=== PATIENT | male | born 1960 | race American Indian/Alaskan Native ===

== ENCOUNTER 2020-12-14 07:42 | Day surgery (SDC) | payer MEDICARE ==
[2020-12-14] MEDS ORDERED: ceFAZolin/STERILE WATER 2 GM/20 ML SYRINGE IV NR (08:00)
[2020-12-14] MEDS ORDERED: LIDOCAINE MPF (2%) 20 MG/1 ML VIAL 5 ML ONE (08:30)
[2020-12-14] MEDS ORDERED: ONDANSETRON 4 MG/2 ML INJ ONE (08:30)
[2020-12-14] MEDS ORDERED: NEOSTIGMINE 10MG/10 ML INJ MDV ONE (08:30)
[2020-12-14] MEDS ORDERED: ROCURONIUM 50 MG/5 ML INJ IV ONE (08:30)
[2020-12-14] MEDS ORDERED: GLYCOPYRROLATE 0.4 MG/2 ML INJ ONE (08:30)
[2020-12-14] MEDS ORDERED: SODIUM CHLORIDE 0.9% 1000 ML 1,000 ML ONE (08:33)
[2020-12-14 08:38] LABS: Hematocrit 27.2 % (35.5-45.6); Hemoglobin 8.8 gm/dl (11.8-15.2); Mean Corpuscular HGB Conc 32 % (32-34); Mean Corpuscular Volume 89 fl (84-94); Platelet Count 382 K/mm3 (140-440); Red Blood Count 3.07 M/mm3 (3.65-5.03)
[2020-12-14 09:36] LABS: Red Cell Distribution Width 20.3 % (13.2-15.2)
--- NOTE | 2020-12-14 09:47 | Anesthesia Day of Surgery ---
Anesthesia Day of Surgery - Day of Surgery Patient Examined: Yes Patient H&P Reviewed: Yes Patient is NPO: Yes Beta Blockers: Yes
--- NOTE | 2020-12-14 09:49 | Anesthesia Consultation ---
Anesthesia Consult and Med Hx Date of service: 12/14/20 - Airway Anesthetic Teeth Evaluation: Chipped (Missing) ROM Head & Neck: Adequate Mental/Hyoid Distance: Adequate Mallampati Class: Class III Intubation Access Assessment: Probably Good - Pre-Operative Health Status ASA Pre-Surgery Classification: ASA3 Proposed Anesthetic Plan: General - Pulmonary Hx Smoking: Yes (STOPPED 1997) Hx Asthma: Yes (DAILY / PRN INHALER USE) Hx Respiratory Symptoms: No SOB: No COPD: No Hx Sleep Apnea: Yes (DX SLEEP APNEA , NO CPAP USE.) - Cardiovascular System Hx Hypertension: Yes (X 9 YRS) Hx Heart Attack/AMI: No Hx Percutaneous Transluminal Coronary Angioplasty (PTCA): No Hx Peripheral Vascular Disease: Yes (Stable AAA; saw proj engineer 08/2020) - Central Nervous System Hx Neuromuscular Disorder: Yes (Uses walker and limited activity) Hx Seizures: No CVA: No Hx Psychiatric Problems: No - Gastrointestinal Hx Ulcer: No (Hx pancreatitis) Hx Gastroesophageal Reflux Disease: Yes (asymptomatic today) - Endocrine Hx Renal Disease: Yes (Last HD yesterday) Hx End Stage Renal Disease: Yes Hx Liver Disease: No Hx Insulin Dependent Diabetes: No Hx Thyroid Disease: No - Hematic Hx Anemia: Yes Hx Sickle Cell Disease: No - Other Systems Hx Cancer: No Hx Obesity: No - Additional Comments Anesthesia Medical History Comments: Was here 01/2018
[2020-12-14] MEDS ORDERED: SODIUM CHLORIDE 0.9% 1000 ML 1,000 ML IV SCH (10:00)
[2020-12-14] MEDS ORDERED: ONDANSETRON 4 MG/2 ML INJ IV PRN (10:00)
[2020-12-14] MEDS ORDERED: HYDROmorphone 1 MG/1 ML INJ IV PRN ×2 (10:00)
[2020-12-14] MEDS ORDERED: BUPIVACAINE/PF (0.25%) 2.5 MG/ML 30 ML VIAL INFILTRATI ONE ×2 (10:23→11:21)
[2020-12-14] MEDS ORDERED: LIDOCAINE 1%/EPINEPHRINE 1:100,000 VIAL (20 ML) INFILTRATI ONE (10:23)
[2020-12-14] MEDS ORDERED: propofoL 200 MG/20 ML VIAL IV ONE (10:43)
[2020-12-14] MEDS ORDERED: fentaNYL 100 MCG/2 ML INJ ONE (10:43)
[2020-12-14] MEDS ORDERED: LIDOCAINE (1%) 10 MG/1 ML VIAL 20 ML MDV INFILTRATI ONE (11:21)
[2020-12-14] MEDS ORDERED: SODIUM CHLORIDE 0.9% IRR 1,500 ML BOTTLE IR ONE (11:22)
[2020-12-14] MEDS ORDERED: SUGAMMADEX SODIUM 200 MG/2 ML VIAL IV ONE (11:31)
--- NOTE | 2020-12-14 11:51 | Short Stay Summary ---
Short Stay Documentation Date of service: 12/14/20 - History Principal diagnosis: Nonfunctioning PD catheter, now on HD H&P: obtained from office - Allergies and Medications Current Medications: Allergies No Known Allergies Allergy (Verified 03/05/18 12:44) Home Medications Medication Instructions Recorded Confirmed Last Taken Type Albuterol Sulfate [Ventolin Hfa] 2 puff PO PRN PRN 01/15/18 12/12/20 01/13/18 09:00 History Lactulose 20 gm PO BID 01/15/18 12/12/20 01/14/18 18:00 History Pantoprazole 40 mg PO DAILY 01/15/18 12/12/20 01/14/18 18:00 History carvediloL [Carvedilol] 25 mg PO BID 01/15/18 12/12/20 12/14/20 05:00 History cloNIDine [Clonidine] 0.3 mg TRANSDERMA 1XW 01/15/18 12/12/20 01/09/18 09:00 History sevelamer HCL [Renagel] 3,200 mg PO TID 01/15/18 12/14/20 12/13/20 History Oxycodone HCl/Acetaminophen 1 each PO Q6HR PRN #15 tablet 01/16/18 12/12/20 Unknown Rx [Percocet 7.5/325 mg] B-Complex with Vitamin C [Vitamin 1 each PO DAILY 12/12/20 12/14/20 12/13/20 History B-Complex with Vit C] Budesonide/Formoterol Fumarate 2 puff IH BID 12/12/20 12/14/20 12/13/20 History [Symbicort 160-4.5 Mcg Inhaler] Docusate Sodium [Colace] 100 mg PO BID 12/12/20 12/12/20 Unknown History Dupilumab [Dupixent Pen] 200 mg SQ Q2W 12/12/20 12/12/20 Unknown History Ergocalciferol [Vitamin D2] 1 cap PO QWEEK 12/12/20 12/14/20 12/13/20 History Ferric Citrate (Nf) [Auryxia] 210 mg PO TID 12/12/20 12/14/20 12/13/20 History NIFEdipine [Procardia Xl] 60 mg PO DAILY 12/12/20 12/12/20 12/14/20 05:00 History Ondansetron HCl [Zofran] 4 mg PO PRN PRN 12/12/20 12/12/20 Unknown History Dupixent Pen 0 1000units SUB-Q 2XW 12/14/20 12/14/20 12/13/20 History Active Medications Cefazolin Sodium (Cefazolin/Sterile Water 2 Gm/20 Ml Syringe) 2 gm IV PREOP NR Stop: 12/14/20 20:00 Hydromorphone HCl (Hydromorphone 1 Mg/1 Ml Inj) 0.25 mg IV Q10MIN PRN PRN Reason: Pain, Moderate (4-6) Stop: 12/14/20 17:00 Hydromorphone HCl (Hydromorphone 1 Mg/1 Ml Inj) 0.5 mg IV Q10MIN PRN PRN Reason: Pain , Severe (7-10) Stop: 12/14/20 17:00 Sodium Chloride (Nacl 0.9% 1000 Ml) 1,000 mls @ 42 mls/hr IV DIRECT ALEISHA Last Admin: 12/14/20 08:40 Dose: 42 mls/hr Documented by: Ondansetron HCl (Ondansetron 4 Mg/2 Ml Inj) 4 mg IV ONCE PRN PRN Reason: Nausea And Vomiting Stop: 12/14/20 17:00 - Brief post op/procedure progress note Date of procedure: 12/14/20 Pre-op diagnosis: Nonfunctioning PD catheter, now on HD Post-op diagnosis: same Procedure: Removal of Peritoneal dialysis catheter Anesthesia: GETA, local Findings: Entire PD catheter removed - 2 pieces Surgeon: KEIRA LAY Estimated blood loss: minimal Pathology: list (PD catheter - 2 pieces, for ID only) Specimen disposition: to lab Condition: stable - Hospital course Hospital course: Pt observed in PACU and discharged to home in stable condition when criteria met - Disposition Condition at discharge: Good Short Stay Discharge Plan Activity: no restrictions Diet: regular Wound: open to air, per your surgeon's advice Additional Instructions: SEE PRINTED DISCHARGE INSTRUCTIONS Follow up with: AMALIA HERNANDEZ II, MD [Primary Care Provider] - 7 Days KEIRA LAY DO [Staff Physician] - 14 Days Prescriptions: traMADoL [Ultram 50 MG tab] 50 mg PO Q6HR PRN #10 tablet PRN Reason: Pain , Severe (7-10)
--- NOTE | 2020-12-14 14:51 | Post Anesthesia Evaluation ---
- Post Anesthesia Evaluation Patient Participated: Yes Airway Patent: Yes Stable Respiratory Function: Yes Nausea/Vomiting: No Temp > 96.8F: Yes Pain Manageable: Yes Adequeate Hydration: Yes Anesthesia Complications: No Block Receding Appropriately: Not Applicable Patient on Ventilator: No
--- NOTE | 2020-12-14 16:03 | Operative Report ---
Operative Report Operative Report: Date of procedure: 12/14/20 Pre-op diagnosis: Nonfunctioning PD catheter, now on HD Post-op diagnosis: same Procedure: Removal of Peritoneal dialysis catheter Anesthesia: GETA, local Findings: Entire PD catheter removed - 2 pieces Surgeon: KEIRA LAY DO Estimated blood loss: minimal Pathology: list (PD catheter - 2 pieces, for ID only) Specimen disposition: to lab Condition: stable Hospital course: Pt observed in PACU and discharged to home in stable condition when criteria met HPI and indication: Patient is a 60-year-old male with a history of end-stage renal disease now on hemodialysis. Previously the patient was on peritoneal dialysis but switched over to hemodialysis. He has not been using his peritoneal dialysis catheter for some time. He was referred to the surgery clinic by Dr. Miles bernal soft tile setter to be evaluated for PD catheter removal. I discussed the procedure with him in detail. All risks, benefits, alternatives were discussed and questions answered. Consent was obtained for peritoneal dialysis catheter removal. All preoperative labs were reviewed and patient had dialysis yesterday. Procedure in detail: Patient was identified in the preoperative area, taken back to the operating room and placed on the operating room table in supine position. After anesthesia was induced the abdomen and peritoneal dialysis catheter were prepped and draped in the usual sterile fashion and a timeout performed. The subcutaneous cuff was easily palpable under the skin at the site of a previous surgical scar. Local anesthetic was infiltrated into the skin at the intended incision site. An incision was made over the palpable cuff using a 10 blade. Dissection was carried down through the skin and subcutaneous tissue using electrocautery until the catheter was encountered. The catheter was dissected from the capsule and the subcutaneous cuff was identified. This was dissected free from the surrounding tissue using electrocautery. We then continued our dissection in order to localize the preperitoneal cuff. This was easily located and dissected from the surrounding tissue using electrocautery. The entire catheter was then free. The catheter was cut just distal to both cuffs. Both pieces were removed without resistance. The fascia was closed with an interrupted 0 Vicryl stitch. The subcutaneous tissue was irrigated and hemostasis very carefully ensured. The incision was closed in layered fashion. The deep dermal layer was closed with interrupted 3-0 Vicryl stitches and the skin was approximated using 4-0 Monocryl subcuticular running stitch and skin glue. The 2 pieces of the peritoneal dialysis catheter were passed off the table as a specimen for identification only. A 4 x 4 gauze dressing was applied to the PD catheter exit site and secured with Tegaderm. At the end of the case, all sponge, instrument, sharp counts were correct x2. The patient was awoken from anesthesia, extubated, taken to PACU in stable condition.
[2020-12-14 17:21] VITALS: BP 132/81
== END 2020-12-14 13:10 | disposition home or self-care (01) ==
LOC: OR 07:42
PROVIDERS: ATTEND Surgery
DX: Z49.02 Encounter for fitting and adjustment of peritoneal dialysis catheter (principal); I12.0 Hypertensive chronic kidney disease with stage 5 chronic kidney disease or end stage renal disease; N18.6 End stage renal disease; K21.9 Gastro-esophageal reflux disease without esophagitis; I73.9 Peripheral vascular disease, unspecified; E78.00 Pure hypercholesterolemia, unspecified; J45.909 Unspecified asthma, uncomplicated; Z87.891 Personal history of nicotine dependence; Z90.49 Acquired absence of other specified parts of digestive tract; Z98.890 Other specified postprocedural states; Z79.899 Other long term (current) drug therapy
CPT/HCPCS: 36415; 49422; 80048; 85027; 88302; J0690; J2405; J2704; J2710; J3010; J7030; U0003

== ENCOUNTER 2021-01-10 00:06 | Inpatient (IN) | payer MEDICARE ==
[2021-01-10] MEDS ORDERED: IPRATROPIUM 0.02% NEBU 2.5 ML IH ONE (00:12)
[2021-01-10] MEDS ORDERED: ALBUTEROL 2.5 MG/3 ML NEBU IH ONE (00:12)
--- NOTE | 2021-01-10 00:24 | Emergency Department Report ---
ED Shortness of Breath HPI - General Chief Complaint: Dyspnea/Respdistress Stated Complaint: MARV Time Seen by Provider: 01/10/21 00:06 Source: patient, EMS Mode of arrival: Stretcher Limitations: Altered Mental Status - History of Present Illness Initial Comments: Patient is a 60-year-old male that presents emergency room with complaints of shortness of breath. Patient states his symptoms started 30 minutes prior to arrival. Patient states symptoms worsen. Patient states his symptoms are better with rest and worse with exertion. Patient states short of breath or back to barely get around his house. Patient states he was unable to open the door for EMS. Patient denies chest pain. Patient brought in by EMS. Report received from EMS. EMS states that they found the patient to have a 43% oxygen saturation on room air. Patient was given Decadron 10 mg and albuterol. Patient has a history of CHF, end-stage renal disease and hypertension and asthma. Patient said increased to 76% with the albuterol. EMS tried BiPAP but the patient saturation drops they placed him back on a nonrebreather satting 91% on a nonrebreather. Patient denies recent travel. Patient denies recent international travel. Patient denies exposure to the novel coronavirus. Patient denies sick contacts. Patient denies fever and chills. Patient denies cough. Patient denies diarrhea. Patient denies coming in contact with anybody with symptoms of the novel coronavirus. MD Complaint: shortness of breath -: Sudden Pain Scale: 10 Consistency: constant Improves With: rest Worsens With: exertion Known History Of: asthma, congestive heart failure, other (esrd) Treatments Prior to Arrival: oxygen, bronchodilator, other (Decadron 10 mg) - Related Data Home Oxygen Therapy: No Home Medications Medication Instructions Recorded Confirmed Last Taken Albuterol Sulfate [Ventolin Hfa] 2 puff PO PRN PRN 01/15/18 12/12/20 01/13/18 09:00 Lactulose 20 gm PO BID 01/15/18 12/12/20 01/14/18 18:00 Pantoprazole 40 mg PO DAILY 01/15/18 12/12/20 01/14/18 18:00 carvediloL [Carvedilol] 25 mg PO BID 01/15/18 12/12/20 12/14/20 05:00 cloNIDine [Clonidine] 0.3 mg TRANSDERMA 1XW 01/15/18 12/12/20 01/09/18 09:00 sevelamer HCL [Renagel] 3,200 mg PO TID 01/15/18 12/14/20 12/13/20 B-Complex with Vitamin C [Vitamin 1 each PO DAILY 12/12/20 12/14/20 12/13/20 B-Complex with Vit C] Budesonide/Formoterol Fumarate 2 puff IH BID 12/12/20 12/14/20 12/13/20 [Symbicort 160-4.5 Mcg Inhaler] Docusate Sodium [Colace CAP] 100 mg PO BID 12/12/20 12/12/20 Unknown Dupilumab [Dupixent Pen] 200 mg SQ Q2W 12/12/20 12/12/20 Unknown Ergocalciferol [Vitamin D2] 1 cap PO QWEEK 12/12/20 12/14/20 12/13/20 Ferric Citrate (Nf) [Auryxia] 210 mg PO TID 12/12/20 12/14/20 12/13/20 NIFEdipine [Procardia Xl] 60 mg PO DAILY 12/12/20 12/12/20 12/14/20 05:00 Ondansetron HCl [Zofran] 4 mg PO PRN PRN 12/12/20 12/12/20 Unknown Dupixent Pen 0 1000units SUB-Q 2XW 12/14/20 12/14/20 12/13/20 Previous Rx's Medication Instructions Recorded Last Taken Type Oxycodone HCl/Acetaminophen 1 each PO Q6HR PRN #15 tablet 01/16/18 Unknown Rx [Percocet 7.5/325 mg] traMADoL [Ultram 50 MG tab] 50 mg PO Q6HR PRN #10 tablet 12/14/20 Unknown Rx Allergies Allergy/AdvReac Type Severity Reaction Status Date / Time No Known Allergies Allergy Verified 03/05/18 12:44 ED Review of Systems ROS: Stated complaint: MARV Other details as noted in HPI ED Past Medical Hx - Past Medical History Hx Hypertension: Yes (X 9 YRS) Hx Heart Attack/AMI: No Hx Liver Disease: No Hx Renal Disease: Yes (Last HD yesterday) Hx Sickle Cell Disease: No Hx Headaches / Migraines: Yes Hx Seizures: No Hx Asthma: Yes (DAILY / PRN INHALER USE) Hx COPD: No - Surgical History Hx Cholecystectomy: Yes Additional Surgical History: right AV fistula, PD - Social History Smoking Status: Former Smoker - Medications Home Medications: Home Medications Medication Instructions Recorded Confirmed Last Taken Type Albuterol Sulfate [Ventolin Hfa] 2 puff PO PRN PRN 01/15/18 12/12/20 01/13/18 09:00 History Lactulose 20 gm PO BID 01/15/18 12/12/20 01/14/18 18:00 History Pantoprazole 40 mg PO DAILY 01/15/18 12/12/20 01/14/18 18:00 History carvediloL [Carvedilol] 25 mg PO BID 01/15/18 12/12/20 12/14/20 05:00 History cloNIDine [Clonidine] 0.3 mg TRANSDERMA 1XW 01/15/18 12/12/20 01/09/18 09:00 History sevelamer HCL [Renagel] 3,200 mg PO TID 01/15/18 12/14/20 12/13/20 History Oxycodone HCl/Acetaminophen 1 each PO Q6HR PRN #15 tablet 01/16/18 12/12/20 Unknown Rx [Percocet 7.5/325 mg] B-Complex with Vitamin C [Vitamin 1 each PO DAILY 12/12/20 12/14/20 12/13/20 History B-Complex with Vit C] Budesonide/Formoterol Fumarate 2 puff IH BID 12/12/20 12/14/20 12/13/20 History [Symbicort 160-4.5 Mcg Inhaler] Docusate Sodium [Colace CAP] 100 mg PO BID 12/12/20 12/12/20 Unknown History Dupilumab [Dupixent Pen] 200 mg SQ Q2W 12/12/20 12/12/20 Unknown History Ergocalciferol [Vitamin D2] 1 cap PO QWEEK 12/12/20 12/14/20 12/13/20 History Ferric Citrate (Nf) [Auryxia] 210 mg PO TID 12/12/20 12/14/20 12/13/20 History NIFEdipine [Procardia Xl] 60 mg PO DAILY 12/12/20 12/12/20 12/14/20 05:00 History Ondansetron HCl [Zofran] 4 mg PO PRN PRN 12/12/20 12/12/20 Unknown History Dupixent Pen 0 1000units SUB-Q 2XW 12/14/20 12/14/20 12/13/20 History traMADoL [Ultram 50 MG tab] 50 mg PO Q6HR PRN #10 tablet 12/14/20 Unknown Rx ED Physical Exam - General Limitations: No Limitations General appearance: alert, in distress - Head Head exam: Present: atraumatic, normocephalic - Eye Eye exam: Present: normal appearance, PERRL Pupils: Present: normal accommodation - ENT ENT exam: Present: mucous membranes moist - Neck Neck exam: Present: normal inspection - Respiratory Respiratory exam: Present: respiratory distress, wheezes, rales - Cardiovascular Cardiovascular Exam: Present: regular rate, normal rhythm. Absent: systolic murmur, diastolic murmur, rubs, gallop - GI/Abdominal GI/Abdominal exam: Present: soft, normal bowel sounds. Absent: distended, tenderness, guarding - Rectal Rectal exam: Present: deferred - Extremities Exam Extremities exam: Present: normal inspection - Back Exam Back exam: Present: normal inspection - Neurological Exam Neurological exam: Present: alert, oriented X3 - Psychiatric Psychiatric exam: Present: normal affect, normal mood - Skin Skin exam: Present: warm, dry, intact, normal color. Absent: rash ED Course Vital Signs 01/10/21 01/10/21 01/10/21 00:26 00:30 00:32 Temperature 97.7 F Pulse Rate 85 84 Respiratory 29 H 25 H Rate Blood Pressure Blood Pressure 186/103 [Left] O2 Sat by Pulse 94 88 93 Oximetry 01/10/21 01/10/21 01/10/21 00:36 00:45 01:07 Temperature Pulse Rate 81 76 Respiratory 25 H 26 H Rate Blood Pressure 186/103 Blood Pressure [Left] O2 Sat by Pulse 93 100 100 Oximetry 01/10/21 01/10/21 01/10/21 01:15 01:31 01:45 Temperature Pulse Rate 74 68 71 Respiratory 24 25 H 19 Rate Blood Pressure 180/109 186/103 186/103 Blood Pressure [Left] O2 Sat by Pulse 99 98 98 Oximetry 01/10/21 02:01 Temperature Pulse Rate 64 Respiratory 18 Rate Blood Pressure 175/97 Blood Pressure [Left] O2 Sat by Pulse 99 Oximetry - Reevaluation(s) Reevaluation #1: Patient will be placed on BiPAP. Patient continues to have increased work of breathing and hypoxia. 01/10/21 00:24 Reevaluation #2: Patient's chest x-ray done. There is a bilateral haziness consistent with flash pulmonary edema. Patient will be placed on a nitro drip. Patient is on BiPAP and his work to breathe and oxygen saturation have improved. His lung sounds have improved. 01/10/21 00:48 Reevaluation #3: Patient resting comfortably. Patient's vital signs are improving. Patient's oxygen is improving. 01/10/21 01:30 Reevaluation #4: Patient's blood pressure has improved. Patient's heart rate is improved. Pa ja's hypoxia is improving. Patient's oxygen support will be decreased. Patient is on BiPAP. Patient's lung sounds are improving. Patient's work to breathe has resolved. Patient is currently on a nitro drip. 01/10/21 02:10 Reevaluation #5: I discussed all results with patient. I discussed plan of care with patient. Patient agrees with plan of care and admission. Patient to be admitted to the hospitalist service. 01/10/21 02:31 - Consultations Consultation #1: Hospitalist consulted for admission. Hospitalist to admit patient. 01/10/21 02:32 ED Medical Decision Making - Lab Data Result diagrams: 01/10/21 00:26 01/10/21 00:26 - EKG Data -: EKG Interpreted by Me EKG shows normal: sinus rhythm, axis, intervals, QRS complexes, ST-T waves Rate: normal - Radiology Data Radiology results: report reviewed, image reviewed interpreted by me: Chest x-ray: No pneumonia, no pneumothorax, no foreign body, no osseous findings, flash pulmonary edema noted. CHEST 1 VIEW INDICATION / CLINICAL INFORMATION: Dyspnea. FINDINGS: SUPPORT DEVICES: None. HEART / MEDIASTINUM: Cardiomegaly LUNGS / PLEURA: Severe bilateral airspace opacity. Small bilateral pleural effusions. No pneumothorax. - Medical Decision Making Patient is a 60-year-old male who presents emergency room with complaints of shortness of breath. Patient had an insidious onset of shortness of breath approximately 30 minutes prior to arrival. Patient brought in by EMS. Report received from EMS. EMS states the patient was hypertensive and hypoxic. Patient initial oxygen saturation 42%. Patient was then placed on albuterol neb and increased to 76% oxygen saturation. BiPAP was attempted by EMS but u nsuccessful. Patient was then placed on a nonrebreather and he was 91-92%. EMS gave the patient Decadron and albuterol. My evaluation, the patient was found to have increased work of breathing, respiratory distress, hypoxia, wheezing throughout lung alvarez and rales. Patient was given a DuoNeb and placed on BiPAP. Patient oxygen saturation and work to breathe improved. Patient did have a chest x-ray appears to have generalized pulmonary edema consistent with flash pulmonary edema. Patient was then placed on a nitro drip. Patient's clinical course dramatically improved after the nitro drip and the patient's oxygen saturation and blood pressure improved. Patient's work to breathe impro nancy with the nitro drip and the BiPAP. Patient had labs done which were consistent with end-stage renal disease, anemia and elevated troponin. Patient troponin most likely elevated due to clinical condition and end-stage renal disease. Patient EKG was done and it shows a sinus rhythm with normal ST segments. No STEMI noted. I personally reviewed the labs and the chest x-ray and EKG. Patient given aspirin in the ER. Patient admitted to the hospitalist service for further evaluation and treatment into the ICU. Critical care time documented due to the multiple reassessments, prolonged time at the bedside, interpretation of diagnostics and labs. - Differential Diagnosis Pulmonary edema, status asthmaticus, hypoxia, shortness of breath, CHF Critical Care Time: Yes Critical care time in (mins) excluding proc time.: 45 Critical care attestation.: If time is entered above; I have spent that time in minutes in the direct care of this critically ill patient, excluding procedure time. Critical Care Time: 45 minutes ED Disposition Clinical Impression: Flash pulmonary edema, Shortness of breath, End stage renal disease, Elevated troponin Respiratory failure Qualifiers: Chronicity: acute Respiratory failure complication: hypoxia Qualified Code(s): J96.01 - Acute respiratory failure with hypoxia Status asthmaticus Qualifiers: Asthma severity: severe Asthma persistence: unspecified Qualified Code(s): J45. 902 - Unspecified asthma with status asthmaticus Disposition: 09 ADMITTED INPATIENT Is pt being admited?: Yes Does the pt Need Aspirin: No Condition: Critical Instructions: Pulmonary Edema (ED) Time of Disposition: 02:41
[2021-01-10 00:42] LABS: Basophils # (Auto) 0.1 K/mm3 (0.0-0.1); Basophils % (Auto) 0.6 % (0.0-1.8); Eosinophils # (Auto) 0.3 K/mm3 (0.0-0.4); Eosinophils % (Auto) 2.3 % (0.0-4.3); Hematocrit 29.3 % (35.5-45.6); Hemoglobin 9.6 gm/dl (11.8-15.2); Lymphocytes # (Auto) 1.9 K/mm3 (1.2-5.4); Mean Corpuscular HGB Conc 33 % (32-34); Mean Corpuscular Volume 90 fl (84-94); Monocytes # (Auto) 0.6 K/mm3 (0.0-0.8); Monocytes % (Auto) 4.5 % (0.0-7.3); Platelet Count 274 K/mm3 (140-440); Red Blood Count 3.26 M/mm3 (3.65-5.03)
--- NOTE | 2021-01-10 00:47 | XRay Report ---
CHEST 1 VIEW INDICATION / CLINICAL INFORMATION: Dyspnea. FINDINGS: SUPPORT DEVICES: None. HEART / MEDIASTINUM: Cardiomegaly LUNGS / PLEURA: Severe bilateral airspace opacity. Small bilateral pleural effusions. No pneumothorax . Signer Name: Jack Wallace MD Signed: 01/10/2021 12:43 AM Workstation Name: [id number]
[2021-01-10 00:48] LABS: Red Cell Distribution Width 24.8 % (13.2-15.2)
[2021-01-10 00:53] LABS: INR 1.29 (0.87-1.13)
[2021-01-10 00:54] LABS: Partial Thromboplastin Time 31.7 Sec. (24.2-36.6)
[2021-01-10 01:06] LABS: Albumin 4.7 g/dL (3.9-5); Calcium 9.4 mg/dL (8.4-10.2)
[2021-01-10] MEDS ORDERED: NITROGLYCERIN DRIP 50 MG/250 ML BOTTLE IV SCH (02:00)
[2021-01-10 02:05] LABS: Chol/HDL Ratio 3.01 %
[2021-01-10] MEDS ORDERED: ASPIRIN 325 MG TAB PO ONE (02:41)
[2021-01-10] MEDS ORDERED: oxyCODONE /ACETAMINOPHEN 5-325MG TAB PO PRN (03:43)
[2021-01-10] MEDS ORDERED: HYDROmorphone 1 MG/1 ML INJ IV PRN (03:43)
[2021-01-10] MEDS ORDERED: MORPHINE 2 MG/1 ML INJ IV PRN (03:43)
[2021-01-10] MEDS ORDERED: ONDANSETRON 4 MG/2 ML INJ IV PRN (03:43)
[2021-01-10] MEDS ORDERED: ACETAMINOPHEN 325 MG TAB PO PRN (03:43)
[2021-01-10] MEDS ORDERED: traMADol 50 MG TAB PO PRN (03:48)
--- NOTE | 2021-01-10 03:56 | History and Physical Report ---
History of Present Illness Date of examination: 01/10/21 Date of admission: 01/10/21 Chief complaint: Dyspnea Respiratory distress History of present illness: 60-year-old male with history of end-stage dialyzed on hemodialysis last hemodialysis yesterday was brought to the emergency room because of shortness of breath. Patient states his symptoms started 30 minutes prior to arrival. Patient states symptoms worsen. Patient states his symptoms are better with re st and worse with exertion. Patient states short of breath or back to barely get around his house. Patient states he was unable to open the door for EMS. Patient denies chest pain. EMS states that they found the patient to have a 43% oxygen saturation on room air. Patient was given Decadron 10 mg and albuterol. Patient has a history of CHF, end-stage renal disease and hypertension and asthma. Patient said increased to 76% with the albuterol. EMS tried BiPAP but the patient saturation drops they placed him back on a nonrebreather satting 91% on a nonrebreather. In the emergency room patient is found to have acute flash pulmonary edema. Subsequently patient was put on BiPAP and nitro drip and we are going to admit the patient to the ICU. Critical care is informed Med rec is done Past History Past Medical History: ESRD, hypertension, renal failure, other (Asthma) Medications and Allergies Allergies Allergy/AdvReac Type Severity Reaction Status Date / Time No Known Allergies Allergy Verified 03/05/18 12:44 Home Medications Medication Instructions Recorded Confirmed Last Taken Type Albuterol Sulfate [Ventolin Hfa] 2 puff PO PRN PRN 01/15/18 12/12/20 01/13/18 09:00 History Lactulose 20 gm PO BID 01/15/18 12/12/20 01/14/18 18:00 History Pantoprazole 40 mg PO DAILY 01/15/18 12/12/20 01/14/18 18:00 History carvediloL [Carvedilol] 25 mg PO BID 01/15/18 12/12/20 12/14/20 05:00 History cloNIDine [Clonidine] 0.3 mg TRANSDERMA 1XW 01/15/18 12/12/20 01/09/18 09:00 History sevelamer HCL [Renagel] 3,200 mg PO TID 01/15/18 12/14/20 12/13/20 History Oxycodone HCl/Acetaminophen 1 each PO Q6HR PRN #15 tablet 01/16/18 12/12/20 Unknown Rx [Percocet 7.5/325 mg] B-Complex with Vitamin C [Vitamin 1 each PO DAILY 12/12/20 12/14/20 12/13/20 History B-Complex with Vit C] Budesonide/Formoterol Fumarate 2 puff IH BID 12/12/20 12/14/20 12/13/20 History [Symbicort 160-4.5 Mcg Inhaler] Docusate Sodium [Colace CAP] 100 mg PO BID 12/12/20 12/12/20 Unknown History Dupilumab [Dupixent Pen] 200 mg SQ Q2W 12/12/20 12/12/20 Unknown History Ergocalciferol [Vitamin D2] 1 cap PO QWEEK 12/12/20 12/14/20 12/13/20 History Ferric Citrate (Nf) [Auryxia] 210 mg PO TID 12/12/20 12/14/20 12/13/20 History NIFEdipine [Procardia Xl] 60 mg PO DAILY 12/12/20 12/12/20 12/14/20 05:00 History Ondansetron HCl [Zofran] 4 mg PO PRN PRN 12/12/20 12/12/20 Unknown History Dupixent Pen 0 1000units SUB-Q 2XW 12/14/20 12/14/20 12/13/20 History traMADoL [Ultram 50 MG tab] 50 mg PO Q6HR PRN #10 tablet 12/14/20 Unknown Rx Active Meds: Active Medications Acetaminophen (Acetaminophen 325 Mg Tab) 650 mg PO Q4H PRN PRN Reason: Pain MILD(1-3)/Fever >100.5/[place] Albuterol (Albuterol 2.5 Mg/3 Ml Nebu) 2.5 mg IH Q4HRT PRN PRN Reason: Shortness Of Breath Albuterol/Ipratropium (Ipratropium/Albuterol Sulfate 3 Ml Ampul.Neb) 1 ampul IH Q6HRT [facility] Aspirin (Aspirin 81 Mg Tab Chew) 81 mg PO ONCE ONE Stop: 01/10/21 03:52 Atorvastatin Calcium (Atorvastatin 40 Mg Tab) 40 mg PO QHS [facility] Carvedilol (Carvedilol 25 Mg Tab) 25 mg PO BID [facility] Clonidine HCl (Clonidine Tts 0.3 Mg/24 Hr Patch) 0.3 mg TD 1XW [facility] Docusate Sodium (Docusate Sodium 100 Mg Cap) 100 mg PO BID [facility] Ergocalciferol (Ergocalciferol (Vit D2) 50,000 Unit Cap) unit PO QWEEK [facility] Famotidine (Famotidine 20 Mg Tab) 20 mg PO BID [facility] Furosemide (Furosemide 40 Mg/4 Ml Inj) 40 mg IV QDAY [facility] Heparin Sodium (Porcine) (Heparin 5,000 Unit/1 Ml Vial) 5,000 unit SUB-Q Q8HR [facility] Hydromorphone HCl (Hydromorphone 1 Mg/1 Ml Inj) 0.5 mg IV Q3H PRN PRN Reason: Pain , Severe (7-10) Nitroglycerin/Dextrose (Tridil Drip 50mg/250ml) 50 mg in 250 mls @ 3 mls/hr IV TITR [facility]; Protocol Last Admin: 01/10/21 02:01 Dose: 10 mcg/min, 3 mls/hr Documented by: Miscellaneous Medication (Budesonide/Formoterol Fumarate [Symbicort 160-4.5 Mcg Inhaler]) 2 puff IH BID [facility] Miscellaneous Medication (Dupilumab [Dupixent Pen]) 200 mg SQ Q2W [facility] Miscellaneous Medication (Sevelamer Hcl [Renagel]) 3,200 mg PO TID [facility] Morphine Sulfate (Morphine 2 Mg/1 Ml Inj) 2 mg IV Q5MIN PRN PRN Reason: Chest Pain unrelieved by NTG Nifedipine (Nifedipine Xl 60 Mg Tab) 60 mg PO DAILY [facility] Ondansetron HCl (Ondansetron 4 Mg/2 Ml Inj) 4 mg IV Q8H PRN PRN Reason: Nausea And Vomiting Oxycodone/Acetaminophen (Oxycodone /Acetaminophen 5-325mg Tab) 1 tab PO Q6H PRN PRN Reason: Pain, Moderate (4-6) Sodium Chloride (Sodium Chloride 0.9% 10 Ml Flush Syringe) 10 ml IV BID [facility] Sodium Chloride (Sodium Chloride 0.9% 10 Ml Flush Syringe) 10 ml IV PRN PRN PRN Reason: LINE FLUSH Tramadol HCl (Tramadol 50 Mg Tab) 50 mg PO Q6HR PRN PRN Reason: Pain , Severe (7-10) Vitamin B Complex/Vitamin C (B Complex W/Vitamin C Tab) 1 each PO DAILY [facility] Review of Systems All systems: negative Cardiovascular: edema, shortness of breath, dyspnea on exertion Respiratory: shortness of breath, dyspnea on exertion, wheezing Exam - Constitutional Vitals: Temp Pulse Resp BP Pulse Ox 97.7 F 63 17 175/97 100 01/10/21 00:32 01/10/21 02:15 01/10/21 02:15 01/10/21 02:15 01/10/21 02:15 General appearance: Present: no acute distress, well-nourished - EENT Eyes: Present: PERRL ENT: hearing intact, clear oral mucosa - Neck Neck: Present: supple, normal ROM - Respiratory Respiratory effort: labored Respiratory: bilateral: diminished, wheezing - Cardiovascular Heart Sounds: Present: S1 & S2. Absent: rub, click - Extremities Extremities: pulses symmetrical Extremity abnormal: edema Peripheral Pulses: within normal limits - Abdominal General gastrointestinal: Present: soft, non-tender, non-distended, normal bowel sounds Male genitourinary: Present: normal - Integumentary Integumentary: Present: clear, warm, dry - Musculoskeletal Musculoskeletal: gait normal, strength equal bilaterally - Psychiatric Psychiatric: appropriate mood/affect, intact judgment & insight - Neurologic Neurologic: CNII-XII intact, moves all extremities HEART Score - HEART Score Troponin: Troponin T 0.625 ng/mL (0.00-0.029) H* 01/10/21 00:26 Results - Labs CBC & Chem 7: 01/10/21 00:26 01/10/21 00:26 Labs: Laboratory Last Values WBC 13.8 K/mm3 (4.5-11.0) H 01/10/21 00:26 RBC 3.26 M/mm3 (3.65-5.03) L 01/10/21 00:26 Hgb 9.6 gm/dl (11.8-15.2) L 01/10/21 00:26 Hct 29.3 % (35.5-45.6) L 01/10/21 00:26 MCV 90 fl (84-94) 01/10/21 00:26 MCH 30 pg (28-32) 01/10/21 00:26 MCHC 33 % (32-34) 01/10/21 00:26 RDW 24.8 % (13.2-15.2) H 01/10/21 00:26 Plt Count 274 K/mm3 (140-440) 01/10/21 00:26 Lymph % (Auto) 14.0 % (13.4-35.0) 01/10/21 00:26 [place] % (Auto) 4.5 % (0.0-7.3) 01/10/21 00:26 Eos % (Auto) 2.3 % (0.0-4.3) 01/10/21 00:26 Baso % (Auto) 0.6 % (0.0-1.8) 01/10/21 00:26 Lymph # (Auto) 1.9 K/mm3 (1.2-5.4) 01/10/21 00:26 [place] # (Auto) 0.6 K/mm3 (0.0-0.8) 01/10/21 00:26 Eos # (Auto) 0.3 K/mm3 (0.0-0.4) 01/10/21 00:26 Baso # (Auto) 0.1 K/mm3 (0.0-0.1) 01/10/21 00:26 Seg Neutrophils % 78.6 % (40.0-70.0) H 01/10/21 00:26 Seg Neutrophils # 10.9 K/mm3 (1.8-7.7) H 01/10/21 00:26 PT 16.6 Sec. (12.2-14.9) H 01/10/21 00:26 INR 1.29 (0.87-1.13) H 01/10/21 00:26 APTT 31.7 Sec. (24.2-36.6) 01/10/21 00:26 Sodium 136 mmol/L (137-145) L 01/10/21 00:26 Potassium 4.3 mmol/L (3.6-5.0) 01/10/21 00:26 Chloride 92.0 mmol/L (98-107) L 01/10/21 00:26 Carbon Dioxide 20 mmol/L (22-30) L 01/10/21 00:26 Anion Gap 28 mmol/L 01/10/21 00:26 BUN 47 mg/dL (9-20) H 01/10/21 00:26 Creatinine 8.0 mg/dL (0.8-1.3) H 01/10/21 00:26 Estimated GFR 8 ml/min 01/10/21 00:26 BUN/Creatinine Ratio 6 % 01/10/21 00:26 Glucose 140 mg/dL (75-100) H 01/10/21 00:26 Calcium 9.4 mg/dL (8.4-10.2) 01/10/21 00:26 Total Bilirubin 0.20 mg/dL (0.1-1.2) 01/10/21 00:26 AST 24 units/L (5-40) 01/10/21 00:26 ALT 9 units/L (7-56) 01/10/21 00:26 Alkaline Phosphatase 123 units/L (35-129) 01/10/21 00:26 Troponin T 0.625 ng/mL (0.00-0.029) H* 01/10/21 00:26 Total Protein 8.6 g/dL (6.3-8.2) H 01/10/21 00:26 Albumin 4.7 g/dL (3.9-5) 01/10/21 00:26 Albumin/Globulin Ratio 1.2 % 01/10/21 00:26 Triglycerides 116 mg/dL (2-149) 01/10/21 00:26 Cholesterol 157 mg/dL (50-199) 01/10/21 00:26 LDL Cholesterol Direct 77 mg/dL (50-130) 01/10/21 00:26 HDL Cholesterol 52 mg/dL (40-59) 01/10/21 00:26 Cholesterol/HDL Ratio 3.01 % 01/10/21 00:26 - Imaging and Cardiology Chest x-ray: report reviewed Assessment and Plan VTE prophylaxis?: Chemical Plan of care discussed with patient/family: Yes - Patient Problems (1) Acute respiratory failure Current Visit: Yes Status: Acute Plan to address problem: Admit the patient to the critical care unit. Patient is on BiPAP. We also continue nitro drip as per protocol. Lasix 40 mg IV x1 dose. DuoNeb by nebulizer every 4 hours. Albuterol via nebulizer every 4 hours as needed. Will consult critical care evaluation (2) Flash pulmonary edema Current Visit: Yes Status: Acute Plan to address problem: Patient is on BiPAP. We also continue nitro drip as per protocol. Lasix 40 mg IV x1 dose. DuoNeb by nebulizer every 4 hours. Echocardiogram. Cardiology and nephrology evaluation (3) Elevated troponin Current Visit: Yes Status: Acute Plan to address problem: Aspirin 81 mg p.o. daily Lipitor 40 mg p.o. daily. Echocardiogram. Serial cardiac enzymes. Cardiology evaluation (4) Hypertension Current Visit: Yes Status: Acute Plan to address problem: Hydralazine 10 mg IV every 6 hours as needed. We continue the home medication. We will monitor the blood pressure closely (5) End stage renal disease Current Visit: Yes Status: Acute Plan to address problem: Patient has end-stage renal disease on hemodialysis. Will consult nephrology for hemodialysis in the morning. Recheck BMP in the morning (6) DVT prophylaxis Current Visit: Yes Status: Acute Plan to address problem: Heparin 5000 units subcu every 8 hours for DVT prophylaxis. Pepcid 20 mg p.o. twice daily for GI prophylaxis. Patient is a full code
[2021-01-10] MEDS ORDERED: DUPILUMAB SQ SCH (04:00)
[2021-01-10] MEDS ORDERED: cloNIDine TTS 0.3 MG/24 HR PATCH TD SCH (04:00)
[2021-01-10] MEDS ORDERED: ASPIRIN 81 MG TAB CHEW PO ONE (04:51)
[2021-01-10] MEDS: HEPARIN 5,000 UNIT/1 ML VIAL SUB-Q SCH ×3 (06:38→21:46)
--- NOTE | 2021-01-10 09:21 | Consultation ---
History of Present Illness Consult date: 01/10/21 Requesting physician: KATIE ECHAVARRIA Consult reason: other (NSTEMI) History of present illness: Primary Platform Consultant: Kaylyn Escoto ([facility]) Pt is a 60-year-old AA male with a hx of ESRD on HD and hypertensive cardiovascular disease with moderately dilated proximal aorta, who presented in respiratory distress in the setting of flash pulmonary edema. Pt denies missing any dialysis sessions and states he is compliant with his home medications. His only complaint is severe SOB immediately prior to arrival. Notably worse with exertion. On BiPAP upon assessment. Cardiology has been consulted for possible NSTEMI. Initial troponin noted to be elevated -> 0.625. Pt denies chest pain. No acute ischemic changes on ECG. Of note, BP markedly elevated at admission. Echo 08/22/2020 1. Left ventricular ejection fraction is 60%. 2. Trace aortic valve insufficiency. 3. Mildly increased left ventricular wall thickness. 4. Trace mitral valve regurgitation. 5. Moderately dilated Sinuses of Valsalva and ascending aorta. 6. Mildly dilated left atrium. Nuclear Stress Test 10/24/2020 1. No scintigraphic evidence of ischemia or infarction. 2. Left ventricular ejection fraction is greater than 65% poststress. Left ventricular dilation and hypertrophy are observed 3. Stress ECG findings are negative for ischemia. 4. Coronary artery calcium is abundantly present on a non-dedicated CT as detailed above 5. Incidental finding on attenuation correction CT images shows dilation of the aortic root measuring 4.6 cm, and dilation of the ascending aorta at the bifurcation of the main pulmonary artery measuring 4.4 to 4.5 cm. Past History Past Medical History: dialysis, ESRD, hypertension, other (asthma) Past Surgical History: cholecystectomy. denies: CABG, PTCA Social history: smoking (former). denies: alcohol abuse (former, last drink Mar 2014) Family history: stroke Medications and Allergies Allergies Allergy/AdvReac Type Severity Reaction Status Date / Time No Known Allergies Allergy Verified 03/05/18 12:44 Home Medications Medication Instructions Recorded Confirmed Last Taken Type Albuterol Sulfate [Ventolin Hfa] 2 puff PO PRN PRN 01/15/18 12/12/20 01/13/18 09:00 History Lactulose 20 gm PO BID 01/15/18 12/12/20 01/14/18 18:00 History Pantoprazole 40 mg PO DAILY 01/15/18 12/12/20 01/14/18 18:00 History carvediloL [Carvedilol] 25 mg PO BID 01/15/18 12/12/20 12/14/20 05:00 History cloNIDine [Clonidine] 0.3 mg TRANSDERMA 1XW 01/15/18 12/12/20 01/09/18 09:00 History sevelamer HCL [Renagel] 3,200 mg PO TID 01/15/18 12/14/20 12/13/20 History Oxycodone HCl/Acetaminophen 1 each PO Q6HR PRN #15 tablet 01/16/18 12/12/20 Unknown Rx [Percocet 7.5/325 mg] B-Complex with Vitamin C [Vitamin 1 each PO DAILY 12/12/20 12/14/20 12/13/20 History B-Complex with Vit C] Budesonide/Formoterol Fumarate 2 puff IH BID 12/12/20 12/14/20 12/13/20 History [Symbicort 160-4.5 Mcg Inhaler] Docusate Sodium [Colace CAP] 100 mg PO BID 12/12/20 12/12/20 Unknown History Dupilumab [Dupixent Pen] 200 mg SQ Q2W 12/12/20 12/12/20 Unknown History Ergocalciferol [Vitamin D2] 1 cap PO QWEEK 12/12/20 12/14/20 12/13/20 History Ferric Citrate (Nf) [Auryxia] 210 mg PO TID 12/12/20 12/14/20 12/13/20 History NIFEdipine [Procardia Xl] 60 mg PO DAILY 12/12/20 12/12/20 12/14/20 05:00 History Ondansetron HCl [Zofran] 4 mg PO PRN PRN 12/12/20 12/12/20 Unknown History Dupixent Pen 0 1000units SUB-Q 2XW 12/14/20 12/14/20 12/13/20 History traMADoL [Ultram 50 MG tab] 50 mg PO Q6HR PRN #10 tablet 12/14/20 Unknown Rx Active Meds: Active Medications Acetaminophen (Acetaminophen 325 Mg Tab) 650 mg PO Q4H PRN PRN Reason: Pain MILD(1-3)/Fever >100.5/[place] Albuterol (Albuterol 2.5 Mg/3 Ml Nebu) 2.5 mg IH Q4HRT PRN PRN Reason: Shortness Of Breath Albuterol/Ipratropium (Ipratropium/Albuterol Sulfate 3 Ml Ampul.Neb) [address] [facility] Arformoterol Tartrate (Arformoterol 15 Mcg/2 Ml Nebu) [address] [facility] Atorvastatin Calcium (Atorvastatin 40 Mg Tab) [address] [facility] Budesonide (Budesonide 0.5 Mg/2 Ml Nebu) 0.[address] [facility] Carvedilol (Carvedilol 25 Mg Tab) [address] [facility] Clonidine HCl (Clonidine Tts 0.3 Mg/24 Hr Patch) 0.[address] [facility] Last Admin: 01/10/21 05:32 Dose: Not Given Documented by: Docusate Sodium (Docusate Sodium 100 Mg Cap) [address] [facility] Ergocalciferol (Ergocalciferol (Vit D2) 50,000 Unit Cap) 50,000 unit PO Fr [facility] Famotidine (Famotidine 20 Mg Tab) [address] [facility] Furosemide (Furosemide 40 Mg/4 Ml Inj) [address] [facility] Stop: 01/10/21 10:01 Heparin Sodium (Porcine) (Heparin 5,000 Unit/1 Ml Vial) 5,000 unit SUB-Q Q8HR [facility] Last Admin: 01/10/21 06:38 Dose: 5,000 unit Documented by: Hydromorphone HCl (Hydromorphone 1 Mg/1 Ml Inj) 0.5 mg IV Q3H PRN PRN Reason: Pain , Severe (7-10) Nitroglycerin/Dextrose (Tridil Drip 50mg/250ml) 50 mg in 250 mls @ 3 mls/hr IV TITR [facility]; Protocol Last Admin: 01/10/21 02:01 Dose: 10 mcg/min, 3 mls/hr Documented by: Miscellaneous Medication (Dupilumab [Dupixent Pen]) [address] [facility] Morphine Sulfate (Morphine 2 Mg/1 Ml Inj) 2 mg IV Q5MIN PRN PRN Reason: Chest Pain unrelieved by NTG Nifedipine (Nifedipine Xl 60 Mg Tab) 60 mg PO DAILY@0800 [facility] Ondansetron HCl (Ondansetron 4 Mg/2 Ml Inj) 4 mg IV Q8H PRN PRN Reason: Nausea And Vomiting Oxycodone/Acetaminophen (Oxycodone /Acetaminophen 5-325mg Tab) 1 tab PO Q6H PRN PRN Reason: Pain, Moderate (4-6) Sevelamer Carbonate (Sevelamer Carbonate 800 Mg Tab) 3,[address] [facility] Sodium Chloride (Sodium Chloride 0.9% 10 Ml Flush Syringe) 10 ml IV BID [facility] Sodium Chloride (Sodium Chloride 0.9% 10 Ml Flush Syringe) 10 ml IV PRN PRN PRN Reason: LINE FLUSH Tramadol HCl (Tramadol 50 Mg Tab) 50 mg PO Q6H PRN PRN Reason: Pain , Severe (7-10) Vitamin B Complex/Vitamin C (B Complex W/Vitamin C Tab) [address] [facility] Review of Systems Constitutional: no fever, no chills Ears, nose, mouth and throat: no nasal congestion, no sore throat Cardiovascular: orthopnea, shortness of breath, dyspnea on exertion, no chest pain, no edema, no syncope, no lightheadedness, no claudication Respiratory: shortness of breath, dyspnea on exertion, no cough Gastrointestinal: no abdominal pain, no nausea, no vomiting Genitourinary Male: no dysuria, no flank pain Musculoskeletal: no neck stiffness, no neck pain Integumentary: no rash, no wounds Neurological: no head injury, no paralysis, no weakness, no numbness, no tingling, no seizures, no syncope, no vertigo, no headaches Endocrine: no polydipsia, no polyuria Hematologic/Lymphatic: no easy bruising, no easy bleeding Allergic/Immunologic: no anaphylaxis Physical Examination Last Vital Signs Temp 97.7 F 01/10/21 00:32 Pulse 78 01/10/21 12:15 Resp 19 01/10/21 12:15 BP 146/88 01/10/21 12:15 Pulse Ox 99 01/10/21 12:15 General appearance: other (BiPAP) HEENT: Positive: EOMI, Normocephaly Neck: Positive: neck supple, trachea midline Cardiac: Positive: Reg Rate and Rhythm, S1/S2, Systolic Murmur (2/6 (base)), Diastolic Murmur (2/6 (left sternal border)) Lungs: Positive: Rales (bibasilar) Neuro: Positive: Grossly Intact Abdomen: Positive: Soft. Negative: Tender Skin: Negative: Rash Musculoskeletal: No Pain, Normal Range of Motion Extremities: Present: upper extr. pulses, lower extr. pulses, edema (mild pedal) Results 01/10/21 00:26 01/10/21 00:26 Cardiac Enzymes 01/10/21 Range/Units 00:26 AST 24 (5-40) units/L Coagulation 01/10/21 Range/Units 00:26 PT 16.6 H (12.2-14.9) Sec. INR 1.29 H (0.87-1.13) APTT 31.7 (24.2-36.6) Sec. Lipids 01/10/21 Range/Units 00:26 Triglycerides 116 (2-149) mg/dL Cholesterol 157 (50-199) mg/dL HDL Cholesterol 52 (40-59) mg/dL Cholesterol/HDL Ratio 3.01 % CBC 01/10/21 Range/Units 00:26 WBC 13.8 H (4.5-11.0) K/mm3 RBC 3.26 L (3.65-5.03) M/mm3 Hgb 9.6 L (11.8-15.2) gm/dl Hct 29.3 L (35.5-45.6) % Plt Count 274 (140-440) K/mm3 Lymph # (Auto) 1.9 (1.2-5.4) K/mm3 [place] # (Auto) 0.6 (0.0-0.8) K/mm3 Eos # (Auto) 0.3 (0.0-0.4) K/mm3 Baso # (Auto) 0.1 (0.0-0.1) K/mm3 Comprehensive Metabolic Panel 01/10/21 Range/Units 00:26 Sodium 136 L (137-145) mmol/L Potassium 4.3 (3.6-5.0) mmol/L Chloride 92.0 L (98-107) mmol/L Carbon Dioxide 20 L (22-30) mmol/L BUN 47 H (9-20) mg/dL Creatinine 8.0 H (0.8-1.3) mg/dL Glucose 140 H (75-100) mg/dL Calcium 9.4 (8.4-10.2) mg/dL AST 24 (5-40) units/L ALT 9 (7-56) units/L Alkaline Phosphatase 123 (35-129) units/L Total Protein 8.6 H (6.3-8.2) g/dL Albumin 4.7 (3.9-5) g/dL - Imaging and Cardiology Echo: report reviewed EKG: report reviewed, image reviewed - EKG Interpretation EKG: no acute changes EKG interpretations - EKG Sinus rhythms and dysrhythmias: sinus rhythm Ventricular dysrhythmias: ventricular premature com Assessment and Plan Volume optimization via HD. Resume home antihypertensive regimen (Coreg 25mg BID, Nifedipine 30mg BID, Clonidine 0.3mg/24 hr patch q7days, Hydralazine 25mg TID). Will optimize as needed. Wean NTG gtt as tolerated. Trend cardiac enzymes. Suspect NSTEMI Type 2 in the setting of hypoxia and accelerated HTN. Recent echo and nuclear stress test noted (as above). Pt seen in conjunction with Dr. Walter Mcmahan, who agrees with the assessment and plan of care. - Patient Problems (1) Acute respiratory failure Current Visit: Yes Status: Acute (2) Flash pulmonary edema Current Visit: Yes Status: Acute (3) ESRD on hemodialysis Current Visit: Yes Status: Acute (4) Anemia Current Visit: Yes Status: Chronic Qualifiers: Anemia type: due to chronic kidney disease (5) Leukocytosis Current Visit: Yes Status: Acute (6) Accelerated hypertension Current Visit: Yes Status: Acute (7) NSTEMI (non-ST elevated myocardial infarction) Current Visit: Yes Status: Acute (8) Aortic insufficiency Current Visit: Yes Status: Chronic Qualifiers: Cardiac valve disease etiology: nonrheumatic Qualified Code(s): I35.1 - Nonrheumatic aortic (valve) insufficiency (9) Ascending aorta dilation Current Visit: Yes Status: Acute Plan to address problem: Stable on TTE 08/2020 (with minimal change noted from 2018) (10) Asthma Current Visit: Yes Status: Chronic Qualifiers: Asthma complication type: uncomplicated
--- NOTE | 2021-01-10 09:44 | Event Note ---
Date: 01/10/21 Pt states he is followed by Dr Aquino (hydroponics grower) as an outpatient I spoke with Miles about consult and he will assume nephrology care We will sign off
--- NOTE | 2021-01-10 09:57 | Consultation ---
History of Present Illness - Reason for Consult Consult date: 01/10/21 end stage renal disease - History of Present Illness This is a 60 year-old man with ESRD who presents for dyspnea, HTN Patient usually dialyzes // at [facility]. Last HD 01/08. Denies any recent issues with HD, including dizziness, lightheadedness, cramping, chest pain on HD. Symptoms began last night/early this morning. Currently, patient notes ongoing dyspnea, headaches, general malaise Past History Past Medical History: ESRD, hypertension, renal failure, other (Asthma) Past Surgical History: No surgical history Social history: no significant social history Family history: no significant family history Medications and Allergies Allergies Allergy/AdvReac Type Severity Reaction Status Date / Time No Known Allergies Allergy Verified 03/05/18 12:44 Home Medications Medication Instructions Recorded Confirmed Last Taken Type Albuterol Sulfate [Ventolin Hfa] 2 puff PO PRN PRN 01/15/18 12/12/20 01/13/18 09:00 History Lactulose 20 gm PO BID 01/15/18 12/12/20 01/14/18 18:00 History Pantoprazole 40 mg PO DAILY 01/15/18 12/12/20 01/14/18 18:00 History carvediloL [Carvedilol] 25 mg PO BID 01/15/18 12/12/20 12/14/20 05:00 History cloNIDine [Clonidine] 0.3 mg TRANSDERMA 1XW 01/15/18 12/12/20 01/09/18 09:00 History sevelamer HCL [Renagel] 3,200 mg PO TID 01/15/18 12/14/20 12/13/20 History Oxycodone HCl/Acetaminophen 1 each PO Q6HR PRN #15 tablet 01/16/18 12/12/20 Unknown Rx [Percocet 7.5/325 mg] B-Complex with Vitamin C [Vitamin 1 each PO DAILY 12/12/20 12/14/20 12/13/20 History B-Complex with Vit C] Budesonide/Formoterol Fumarate 2 puff IH BID 12/12/20 12/14/20 12/13/20 History [Symbicort 160-4.5 Mcg Inhaler] Docusate Sodium [Colace CAP] 100 mg PO BID 12/12/20 12/12/20 Unknown History Dupilumab [Dupixent Pen] 200 mg SQ Q2W 12/12/20 12/12/20 Unknown History Ergocalciferol [Vitamin D2] 1 cap PO QWEEK 12/12/20 12/14/20 12/13/20 History Ferric Citrate (Nf) [Auryxia] 210 mg PO TID 12/12/20 12/14/20 12/13/20 History NIFEdipine [Procardia Xl] 60 mg PO DAILY 12/12/20 12/12/20 12/14/20 05:00 History Ondansetron HCl [Zofran] 4 mg PO PRN PRN 12/12/20 12/12/20 Unknown History Dupixent Pen 0 1000units SUB-Q 2XW 12/14/20 12/14/20 12/13/20 History traMADoL [Ultram 50 MG tab] 50 mg PO Q6HR PRN #10 tablet 12/14/20 Unknown Rx Active Meds: Active Medications Acetaminophen (Acetaminophen 325 Mg Tab) 650 mg PO Q4H PRN PRN Reason: Pain MILD(1-3)/Fever >100.5/BULLARD Albuterol (Albuterol 2.5 Mg/3 Ml Nebu) 2.5 mg IH Q4HRT PRN PRN Reason: Shortness Of Breath Albuterol/Ipratropium (Ipratropium/Albuterol Sulfate 3 Ml Ampul.Neb) 1 ampul IH Q6HRT [facility] Arformoterol Tartrate (Arformoterol 15 Mcg/2 Ml Nebu) 15 mcg IH Q12HRT [facility] Atorvastatin Calcium (Atorvastatin 40 Mg Tab) 40 mg PO QHS [facility] Budesonide (Budesonide 0.5 Mg/2 Ml Nebu) 0.5 mg IH Q12HRT [facility] Carvedilol (Carvedilol 25 Mg Tab) 25 mg PO BID [facility] Clonidine HCl (Clonidine Tts 0.3 Mg/24 Hr Patch) 0.3 mg TD Th [facility] Last Admin: 01/10/21 05:32 Dose: Not Given Documented by: Docusate Sodium (Docusate Sodium 100 Mg Cap) 100 mg PO BID [facility] Ergocalciferol (Ergocalciferol (Vit D2) 50,000 Unit Cap) 50,000 unit PO Fr [facility] Famotidine (Famotidine 20 Mg Tab) 20 mg PO QAM [facility] Furosemide (Furosemide 40 Mg/4 Ml Inj) 40 mg IV QDAY [facility] Stop: 01/10/21 10:01 Heparin Sodium (Porcine) (Heparin 5,000 Unit/1 Ml Vial) 5,000 unit SUB-Q Q8HR [facility] Last Admin: 01/10/21 06:38 Dose: 5,000 unit Documented by: Hydromorphone HCl (Hydromorphone 1 Mg/1 Ml Inj) 0.5 mg IV Q3H PRN PRN Reason: Pain , Severe (7-10) Nitroglycerin/Dextrose (Tridil Drip 50mg/250ml) 50 mg in 250 mls @ 3 mls/hr IV TITR [facility]; Protocol Last Admin: 01/10/21 02:01 Dose: 10 mcg/min, 3 mls/hr Documented by: Sodium Chloride (Nacl 0.9%) 100 mls @ 999 mls/hr IV CONNOR PRN PRN Reason: Hypotension Miscellaneous Medication (Dupilumab [Dupixent Pen]) 200 mg SQ Q2W [facility] Morphine Sulfate (Morphine 2 Mg/1 Ml Inj) 2 mg IV Q5MIN PRN PRN Reason: Chest Pain unrelieved by NTG Nifedipine (Nifedipine Xl 60 Mg Tab) 60 mg PO DAILY@0800 [facility] Ondansetron HCl (Ondansetron 4 Mg/2 Ml Inj) 4 mg IV Q8H PRN PRN Reason: Nausea And Vomiting Oxycodone/Acetaminophen (Oxycodone /Acetaminophen 5-325mg Tab) 1 tab PO Q6H PRN PRN Reason: Pain, Moderate (4-6) Sevelamer Carbonate (Sevelamer Carbonate 800 Mg Tab) 3,200 mg PO TIDWM [facility] Sodium Chloride (Sodium Chloride 0.9% 10 Ml Flush Syringe) 10 ml IV BID [facility] Sodium Chloride (Sodium Chloride 0.9% 10 Ml Flush Syringe) 10 ml IV PRN PRN PRN Reason: LINE FLUSH Tramadol HCl (Tramadol 50 Mg Tab) 50 mg PO Q6H PRN PRN Reason: Pain , Severe (7-10) Vitamin B Complex/Vitamin C (B Complex W/Vitamin C Tab) 1 each PO DAILY [facility] Review of Systems Constitutional: weakness, malaise Cardiovascular: shortness of breath, dyspnea on exertion, no chest pain, no rapid/irregular heart beat, no lightheadedness Respiratory: shortness of breath, no cough Gastrointestinal: no abdominal pain, no nausea, no vomiting, no diarrhea Genitourinary Male: no flank pain Musculoskeletal: no neck stiffness, no muscle cramps, no myalgias Integumentary: no rash Neurological: weakness, headaches Psychiatric: no anxiety Exam - Vital Signs Vital signs: Vital Signs Pulse Ox 94 01/10/21 00:26 - Physical Exam Narrative exam: Constitutional: moderate acute distress on Bipap Head: NC/AT Neck: supple Lungs: coarse lung sounds CV: RRR, no M/R/G Abdomen: soft, non-tender, bowel sounds present Back: nontender Extremities: no edema, pulses WNL Skin: intact Neuro: no focal deficits, alert and oriented x4 Results - Lab Results 01/10/21 00:26 10 00:26 Most recent lab results Calcium 9.4 mg/dL (8.4-10.2) 01/10/21 00:26 Assessment and Plan This is a 60 year old man who presents with dyspnea # ESRD: HD today for volume control, toxin/electrolyte management - daily labs - renally dose meds - avoid nephrotoxins - renal diet - verbal consent obtained for HD # Anemia: last hemoglobin 9.6, ESAs with HD # HTN: BP greatly elevated on arrival. UF as tolerated with HD. BP high on NTG gtt, continue oral antihypertensives and likely to need titration prior to discharge # Secondary Hyperparathyroidism: continue home binders as needed
[2021-01-10] MEDS ORDERED: FUROSEMIDE 40 MG/4 ML INJ IV SCH (10:00)
[2021-01-10] MEDS ORDERED: NON-FORMULARY EACH (Budesonide/Formoterol Fumarate [Symbicort 160-4.5 Mcg Inhaler] 10.2 GM IH SCH (10:00)
[2021-01-10] MEDS ORDERED: SODIUM CHLORIDE 0.9% 100 ML IV PRN (10:09)
--- NOTE | 2021-01-10 10:36 | Electrocardiograph Report ---
[facility] Test Date: 2021-01-10 Test Time: 01:44:56 Pat Name: ADRIAN ASH Department: Room: [place] [address] Gender: M [employer]: BRENT : 1960 Requested By: KARLI CASTRO III Order Number: [id number] Reading MD: Skinny Mcmahan Measurements Intervals [place] Rate: 71 P: 45 VT: 216 QRS: -45 QRSD: 99 T: 12 QT: 454 QTc: 494 Interpretive Statements Sinus rhythm Ventricular premature complex Prolonged VT interval Left anterior fascicular block No previous ECG available for comparison Electronically Signed On 01-10-2021 10:36:28 EDT by Skinny Mcmahan
[2021-01-10] MEDS: IPRATROPIUM/ALBUTEROL SULFATE 3 ML AMPUL.NEB IH SCH ×3 (11:46→21:30)
[2021-01-10] MEDS: ARFORMOTEROL 15 MCG/2 ML NEBU IH SCH ×2 (11:46→21:35)
[2021-01-10] MEDS: BUDESONIDE 0.5 MG/2 ML NEBU IH SCH ×2 (11:46→21:35)
[2021-01-10] MEDS: NIFEdipine XL 60 MG TAB PO SCH (12:20)
[2021-01-10] MEDS: DOCUSATE SODIUM 100 MG CAP PO SCH ×2 (12:20→21:45)
[2021-01-10] MEDS: B COMPLEX W/VITAMIN C TAB PO SCH (12:20)
[2021-01-10] MEDS: SEVELAMER CARBONATE 800 MG TAB PO SCH ×2 (12:20→18:04)
[2021-01-10] MEDS: FAMOTIDINE 20 MG TAB PO SCH (12:21)
[2021-01-10] MEDS: carvediloL 25 MG TAB PO SCH ×2 (12:21→21:43)
--- NOTE | 2021-01-10 12:44 | Consultation ---
History of Present Illness Consult date: 01/10/21 Requesting physician: KATIE ECHAVARRIA Reason for consult: hypoxemia, other (pulmonary edema) History of present illness: 60 y/o male admitted with acute respiratory secondary to pulmonary edema. Patient has renal disease and is followed by Dr. Aquino. In the ED patient was placed on nitro drip and bipap with improvement in pulmonary function and bp. Remainder is negative. Past History Past Medical History: ESRD, hypertension, renal failure, other (Asthma) Medications and Allergies Allergies Allergy/AdvReac Type Severity Reaction Status Date / Time No Known Allergies Allergy Verified 01/11/21 11:19 Home Medications Medication Instructions Recorded Confirmed Last Taken Type Albuterol Sulfate [Ventolin Hfa] 2 puff PO PRN PRN 01/15/18 12/12/20 01/13/18 09:00 History Lactulose 20 gm PO BID 01/15/18 12/12/20 01/14/18 18:00 History Pantoprazole 40 mg PO DAILY 01/15/18 12/12/20 01/14/18 18:00 History carvediloL [Carvedilol] 25 mg PO BID 01/15/18 12/12/20 12/14/20 05:00 History cloNIDine [Clonidine] 0.3 mg TRANSDERMA 1XW 01/15/18 12/12/20 01/09/18 09:00 History sevelamer HCL [Renagel] 3,200 mg PO TID 01/15/18 12/14/20 12/13/20 History Budesonide/Formoterol Fumarate 2 puff IH BID 12/12/20 12/14/20 12/13/20 History [Symbicort 160-4.5 Mcg Inhaler] Docusate Sodium [Colace CAP] 100 mg PO BID 12/12/20 12/12/20 Unknown History Dupilumab [Dupixent Pen] 200 mg SQ Q2W 12/12/20 12/12/20 Unknown History Ergocalciferol [Vitamin D2] 1 cap PO QWEEK 12/12/20 12/14/20 12/13/20 History Ferric Citrate (Nf) [Auryxia] 210 mg PO TID 12/12/20 12/14/20 12/13/20 History NIFEdipine [Procardia Xl] 60 mg PO DAILY 12/12/20 12/12/2021 05:00 History Acetaminophen 1,000 - 1,500 mg PO BID PRN 01/11/21 01/11/21 Unknown History Oxymetazoline 0.05% 1 spray INTRANASAL DAILY PRN 01/11/21 01/11/21 Unknown History Temazepam [Restoril] 15 mg PO QHS PRN 01/11/21 01/11/21 Unknown History Vit B Comp No.3/Folic/C/Biotin 1 each PO QDAY 01/11/21 01/11/21 Unknown History [[facility] Rx Tablet] sevelamer HCL [Sevelamer HCl] 1,600 mg PO PRN PRN 01/11/21 01/11/21 Unknown History Active Meds: Active Medications Acetaminophen (Acetaminophen 325 Mg Tab) 650 mg PO Q4H PRN PRN Reason: Pain MILD(1-3)/Fever >100.5/BULLARD Albuterol (Albuterol 2.5 Mg/3 Ml Nebu) 2.5 mg IH Q4HRT PRN PRN Reason: Shortness Of Breath Albuterol/Ipratropium (Ipratropium/Albuterol Sulfate 3 Ml Ampul.Neb) 1 ampul IH Q6HRT [facility] Last Admin: 01/10/21 11:46 Dose: Not Given Documented by: Arformoterol Tartrate (Arformoterol 15 Mcg/2 Ml Nebu) 15 mcg IH Q12HRT [facility] Last Admin: 01/10/21 11:46 Dose: Not Given Documented by: Atorvastatin Calcium (Atorvastatin 40 Mg Tab) 40 mg PO QHS [facility] Budesonide (Budesonide 0.5 Mg/2 Ml Nebu) 0.5 mg IH Q12HRT [facility] Last Admin: 01/10/21 11:46 Dose: Not Given Documented by: Carvedilol (Carvedilol 25 Mg Tab) 25 mg PO BID [facility] Last Admin: 01/10/21 12:21 Dose: 25 mg Documented by: Clonidine HCl (Clonidine Tts 0.3 Mg/24 Hr Patch) 0.3 mg TD Th [facility] Last Admin: 01/10/21 05:32 Dose: Not Given Documented by: Docusate Sodium (Docusate Sodium 100 Mg Cap) 100 mg PO BID [facility] Last Admin: 01/10/21 12:20 Dose: 100 mg Documented by: Ergocalciferol (Ergocalciferol (Vit D2) 50,000 Unit Cap) 50,000 unit PO Fr [facility] Famotidine (Famotidine 20 Mg Tab) 20 mg PO QAM [facility] Last Admin: 01/10/21 12:21 Dose: 20 mg Documented by: Heparin Sodium (Porcine) (Heparin 5,000 Unit/1 Ml Vial) 5,000 unit SUB-Q Q8HR [facility] Last Admin: 01/10/21 06:38 Dose: 5,000 unit Documented by: Hydromorphone HCl (Hydromorphone 1 Mg/1 Ml Inj) 0.5 mg IV Q3H PRN PRN Reason: Pain , Severe (7-10) Nitroglycerin/Dextrose (Tridil Drip 50mg/250ml) 50 mg in 250 mls @ 3 mls/hr IV TITR [facility]; Protocol Last Admin: 01/10/21 02:01 Dose: 10 mcg/min, 3 mls/hr Documented by: Sodium Chloride (Nacl 0.9%) 100 mls @ 999 mls/hr IV CONNOR PRN PRN Reason: Hypotension Miscellaneous Medication (Dupilumab [Dupixent Pen]) 200 mg SQ Q2W [facility] Morphine Sulfate (Morphine 2 Mg/1 Ml Inj) 2 mg IV Q5MIN PRN PRN Reason: Chest Pain unrelieved by NTG Nifedipine (Nifedipine Xl 60 Mg Tab) 60 mg PO DAILY@0800 [facility] Last Admin: 01/10/21 12:20 Dose: 60 mg Documented by: Ondansetron HCl (Ondansetron 4 Mg/2 Ml Inj) 4 mg IV Q8H PRN PRN Reason: Nausea And Vomiting Oxycodone/Acetaminophen (Oxycodone /Acetaminophen 5-325mg Tab) 1 tab PO Q6H PRN PRN Reason: Pain, Moderate (4-6) Sevelamer Carbonate (Sevelamer Carbonate 800 Mg Tab) 3,200 mg PO TIDWM [facility] Last Admin: 01/10/21 12:20 Dose: 3,200 mg Documented by: Sodium Chloride (Sodium Chloride 0.9% 10 Ml Flush Syringe) 10 ml IV BID [facility] Sodium Chloride (Sodium Chloride 0.9% 10 Ml Flush Syringe) 10 ml IV PRN PRN PRN Reason: LINE FLUSH Tramadol HCl (Tramadol 50 Mg Tab) 50 mg PO Q6H PRN PRN Reason: Pain , Severe (7-10) Vitamin B Complex/Vitamin C (B Complex W/Vitamin C Tab) 1 each PO DAILY [facility] Last Admin: 01/10/21 12:20 Dose: 1 each Documented by: Review of Systems All systems: negative Physical Examination Vital signs: Vital Signs Pulse Ox 94 01/10/21 00:26 Results - Laboratory Findings CBC and BMP: 01/11/21 04:57 01/11/21 04:57 PT/INR, D-dimer PT 16.6 Sec. (12.2-14.9) H 01/10/21 00:26 INR 1.29 (0.87-1.13) H 01/10/21 00:26 Abnormal lab findings: Abnormal Labs 01/10/21 01/10/21 01/10/21 00:26 00:26 00:26 WBC 13.8 H RBC 3.26 L Hgb 9.6 L Hct 29.3 L RDW 24.8 H Seg Neutrophils % 78.6 H Seg Neutrophils # 10.9 H PT 16.6 H INR 1.29 H Sodium 136 L Chloride 92.0 L Carbon Dioxide 20 L BUN 47 H Creatinine 8.0 H Glucose 140 H Troponin T 0.625 H* Total Protein 8.6 H - Diagnostic Findings Chest x-ray: image reviewed Assessment and Plan 60 y/o with acute respiratory failure secondary to flash pulmonary edema, renal disease HD per renal Suggest stopping Nitro Starting oral therapy Wean Bipap therapy as tolerated Guarded prognosis. CCT 31min
[2021-01-10 15:58] LABS: Hepatitis C Virus Antibody Non-Reactive (NonReactive)
[2021-01-10 15:59] LABS: Hepatitis B Surface Antigen Nonreactive (Negative)
[2021-01-10] MEDS ORDERED: TEMAZEPAM 15 MG CAP PO PRN (20:39)
[2021-01-11] MEDS: ALBUTEROL 2.5 MG/3 ML NEBU IH PRN ×2 (00:55→06:44)
[2021-01-11 05:52] LABS: Hematocrit 24.7 % (35.5-45.6); Hemoglobin 8.4 gm/dl (11.8-15.2); Mean Corpuscular HGB Conc 34 % (32-34); Mean Corpuscular Volume 88 fl (84-94); Platelet Count 220 K/mm3 (140-440)
[2021-01-11 05:58] LABS: Calcium 9.4 mg/dL (8.4-10.2)
[2021-01-11] MEDS ORDERED: MORPHINE 2 MG/1 ML INJ IV ONE (06:30)
[2021-01-11 06:47] LABS: Red Cell Distribution Width 24.9 % (13.2-15.2)
[2021-01-11] MEDS: SEVELAMER CARBONATE 800 MG TAB PO SCH ×3 (08:00→17:00)
[2021-01-11] MEDS: ARFORMOTEROL 15 MCG/2 ML NEBU IH SCH (08:37)
[2021-01-11] MEDS: BUDESONIDE 0.5 MG/2 ML NEBU IH SCH (08:38)
[2021-01-11] MEDS: IPRATROPIUM/ALBUTEROL SULFATE 3 ML AMPUL.NEB IH SCH ×3 (08:38→14:28)
[2021-01-11 09:53] LABS: Promyelocytes # (Manual) 0.1 K/mm3; Total Cells Counted 100
[2021-01-11 09:54] LABS: Platelet Estimate Consistent w Auto
[2021-01-11] MEDS ORDERED: ERGOCALCIFEROL (VIT D2) 50,000 UNIT CAP PO SCH (10:00)
--- NOTE | 2021-01-11 10:02 | Progress Note ---
Assessment and Plan This is a 60 year old man who presents with dyspnea # ESRD: HD yesterday for volume control, toxin/electrolyte management; plan to continue HD per outpatient schedule //, no indication for extra HD today - daily labs - renally dose meds - avoid nephrotoxins - renal diet - verbal consent obtained for HD - ok to discharge from renal standpoint, continue outpatient HD tomorrow # Anemia: last hemoglobin 9.6, ESAs with HD # HTN: BP greatly elevated on arrival, has improved s/p HD, NTG gtt. UF as tolerated with HD. Continue oral antihypertensives and likely to need titration prior to discharge # Secondary Hyperparathyroidism: continue home binders as needed Subjective Date of service: 01/11/21 Interval history: Feels much better this AM. Had HD yesterday with improvement in respiratory status, on NC this AM (2L). Objective - Exam Narrative Exam: Constitutional: no acute distress Head: NC/AT Neck: supple Lungs: coarse lung sounds CV: RRR, no M/R/G Abdomen: soft, non-tender, bowel sounds present Back: nontender Extremities: no edema, pulses WNL Skin: intact Neuro: no focal deficits, alert and oriented x4 - Vital Signs Vital signs: Vital Signs - 12hr 01/10/21 01/10/21 01/10/21 22:01 22:15 22:31 Temperature Pulse Rate 72 Pulse Rate [ Anterior Bilateral Throughout] Respiratory Rate Respiratory Rate [Anterior Bilateral Throughout] Blood Pressure 162/92 167/93 169/96 Blood Pressure [Left] O2 Sat by Pulse 100 100 100 Oximetry O2 Sat by Pulse Oximetry [ Anterior Bilateral Throughout] 01/10/21 01/10/21 01/10/21 22:45 22:58 23:01 Temperature 97.2 F L Pulse Rate 77 Pulse Rate [ Anterior Bilateral Throughout] Respiratory 22 Rate Respiratory Rate [Anterior Bilateral Throughout] Blood Pressure 155/87 165/92 147/85 Blood Pressure [Left] O2 Sat by Pulse 100 100 Oximetry O2 Sat by Pulse 100 Oximetry [ Anterior Bilateral Throughout] 01/10/21 01/10/21 01/10/21 23:15 23:31 23:45 Temperature Pulse Rate Pulse Rate [ Anterior Bilateral Throughout] Respiratory Rate Respiratory Rate [Anterior Bilateral Throughout] Blood Pressure 155/87 148/84 147/85 Blood Pressure [Left] O2 Sat by Pulse 100 100 100 Oximetry O2 Sat by Pulse Oximetry [ Anterior Bilateral Throughout] 01/11/21 01/11/21 01/11/21 00:01 00:15 00:31 Temperature Pulse Rate Pulse Rate [ Anterior Bilateral Throughout] Respiratory Rate Respiratory Rate [Anterior Bilateral Throughout] Blood Pressure 156/89 151/89 177/99 Blood Pressure [Left] O2 Sat by Pulse 100 100 100 Oximetry O2 Sat by Pulse Oximetry [ Anterior Bilateral Throughout] 01/11/21 01/11/21 01/11/21 00:45 00:55 01:00 Temperature Pulse Rate 90 Pulse Rate [ 89 Anterior Bilateral Throughout] Respiratory 19 Rate Respiratory 20 Rate [Anterior Bilateral Throughout] Blood Pressure 167/92 167/92 Blood Pressure [Left] O2 Sat by Pulse 96 99 Oximetry O2 Sat by Pulse Oximetry [ Anterior Bilateral Throughout] 01/11/21 01/11/21 01/11/21 01:01 01:15 01:31 Temperature Pulse Rate Pulse Rate [ Anterior Bilateral Throughout] Respiratory Rate Respiratory Rate [Anterior Bilateral Throughout] Blood Pressure 177/99 157/90 151/85 Blood Pressure [Left] O2 Sat by Pulse 100 100 100 Oximetry O2 Sat by Pulse Oximetry [ Anterior Bilateral Throughout] 01/11/21 01/11/21 01/11/21 01:45 02:01 02:15 Temperature Pulse Rate Pulse Rate [ Anterior Bilateral Throughout] Respiratory Rate Respiratory Rate [Anterior Bilateral Throughout] Blood Pressure 145/87 145/84 144/84 Blood Pressure [Left] O2 Sat by Pulse 100 100 100 Oximetry O2 Sat by Pulse Oximetry [ Anterior Bilateral Throughout] 01/11/21 01/11/21 01/11/21 02:31 02:45 03:01 Temperature Pulse Rate Pulse Rate [ Anterior Bilateral Throughout] Respiratory Rate Respiratory Rate [Anterior Bilateral Throughout] Blood Pressure 144/90 157/91 158/90 Blood Pressure [Left] O2 Sat by Pulse 100 100 100 Oximetry O2 Sat by Pulse Oximetry [ Anterior Bilateral Throughout] 01/11/21 01/11/21 01/11/21 03:15 03:31 03:45 Temperature Pulse Rate Pulse Rate [ Anterior Bilateral Throughout] Respiratory Rate Respiratory Rate [Anterior Bilateral Throughout] Blood Pressure 159/94 154/88 150/91 Blood Pressure [Left] O2 Sat by Pulse 100 100 100 Oximetry O2 Sat by Pulse Oximetry [ Anterior Bilateral Throughout] 01/11/21 01/11/21 01/11/21 04:00 04:01 04:15 Temperature Pulse Rate 76 Pulse Rate [ Anterior Bilateral Throughout] Respiratory 18 Rate Respiratory Rate [Anterior Bilateral Throughout] Blood Pressure 166/86 154/88 159/88 Blood Pressure [Left] O2 Sat by Pulse 100 100 99 Oximetry O2 Sat by Pulse Oximetry [ Anterior Bilateral Throughout] 01/11/21 01/11/21 01/11/21 04:31 04:45 05:01 Temperature Pulse Rate Pulse Rate [ Anterior Bilateral Throughout] Respiratory Rate Respiratory Rate [Anterior Bilateral Throughout] Blood Pressure 150/91 160/89 154/92 Blood Pressure [Left] O2 Sat by Pulse 100 100 100 Oximetry O2 Sat by Pulse Oximetry [ Anterior Bilateral Throughout] 01/11/21 01/11/21 01/11/21 05:15 06:42 06:44 Temperature Pulse Rate Pulse Rate [ 77 Anterior Bilateral Throughout] Respiratory 20 Rate Respiratory 20 Rate [Anterior Bilateral Throughout] Blood Pressure 165/96 Blood Pressure [Left] O2 Sat by Pulse 100 Oximetry O2 Sat by Pulse Oximetry [ Anterior Bilateral Throughout] 01/11/21 01/11/21 01/11/21 08:05 08:06 08:09 Temperature Pulse Rate 62 62 Pulse Rate [ Anterior Bilateral Throughout] Respiratory 18 20 Rate Respiratory Rate [Anterior Bilateral Throughout] Blood Pressure Blood Pressure 154/87 [Left] O2 Sat by Pulse 100 100 Oximetry O2 Sat by Pulse Oximetry [ Anterior Bilateral Throughout] 01/11/21 08:42 Temperature Pulse Rate Pulse Rate [ 64 Anterior Bilateral Throughout] Respiratory Rate Respiratory 18 Rate [Anterior Bilateral Throughout] Blood Pressure Blood Pressure [Left] O2 Sat by Pulse Oximetry O2 Sat by Pulse Oximetry [ Anterior Bilateral Throughout] - Lab 01/11/21 04:57 01/11/21 04:57 Most recent lab results Calcium 9.4 mg/dL (8.4-10.2) 01/11/21 04:57 Medications & Allergies - Medications Allergies/Adverse Reactions: Allergies No Known Allergies Allergy (Verified 03/05/18 12:44) Home Medications: Home Medications Medication Instructions Recorded Confirmed Last Taken Type Albuterol Sulfate [Ventolin Hfa] 2 puff PO PRN PRN 01/15/18 12/12/20 01/13/18 09:00 History Lactulose 20 gm PO BID 01/15/18 12/12/20 01/14/18 18:00 History Pantoprazole 40 mg PO DAILY 01/15/18 12/12/20 01/14/18 18:00 History carvediloL [Carvedilol] 25 mg PO BID 01/15/18 12/12/20 12/14/20 05:00 History cloNIDine [Clonidine] 0.3 mg TRANSDERMA 1XW 01/15/18 12/12/20 01/09/18 09:00 History sevelamer HCL [Renagel] 3,200 mg PO TID 01/15/18 12/14/20 12/13/20 History Oxycodone HCl/Acetaminophen 1 each PO Q6HR PRN #15 tablet 01/16/18 12/12/20 Unknown Rx [Percocet 7.5/325 mg] B-Complex with Vitamin C [Vitamin 1 each PO DAILY 12/12/20 12/14/20 12/13/20 History B-Complex with Vit C] Budesonide/Formoterol Fumarate 2 puff IH BID 12/12/20 12/14/20 12/13/20 History [Symbicort 160-4.5 Mcg Inhaler] Docusate Sodium [Colace CAP] 100 mg PO BID 12/12/20 12/12/20 Unknown History Dupilumab [Dupixent Pen] 200 mg SQ Q2W 12/12/20 12/12/20 Unknown History Ergocalciferol [Vitamin D2] 1 cap PO QWEEK 12/12/20 12/14/20 12/13/20 History Ferric Citrate (Nf) [Auryxia] 210 mg PO TID 12/12/20 12/14/20 12/13/20 History NIFEdipine [Procardia Xl] 60 mg PO DAILY 12/12/20 12/12/20 12/14/20 05:00 History Ondansetron HCl [Zofran] 4 mg PO PRN PRN 12/12/20 12/12/20 Unknown History Dupixent Pen 0 1000units SUB-Q 2XW 12/14/20 12/14/20 12/13/20 History traMADoL [Ultram 50 MG tab] 50 mg PO Q6HR PRN #10 tablet 12/14/20 Unknown Rx Active Medications: Generic Name Dose Route Start Last Admin Trade Name Freq PRN Reason Stop Dose Admin Acetaminophen 650 mg 01/10/21 03:43 Acetaminophen 325 Mg Tab PO Q4H PRN Pain MILD(1-3)/Fever >100.5/BULLARD Albuterol 2.5 mg 01/10/21 03:43 01/11/21 06:44 Albuterol 2.5 Mg/3 Ml Nebu IH 2.5 mg Q4HRT PRN Administration Shortness Of Breath Albuterol/Ipratropium 1 ampul 01/10/21 08:00 01/11/21 08:38 Ipratropium/Albuterol Sulfate 3 Ml Ampul.Neb IH 1 ampul Q6HRT [facility] Administration Arformoterol Tartrate 15 mcg 01/10/21 08:00 01/11/21 08:37 Arformoterol 15 Mcg/2 Ml Nebu IH 15 mcg Q12HRT [facility] Administration Atorvastatin Calcium 40 mg 01/10/21 22:00 01/10/21 21:47 Atorvastatin 40 Mg Tab PO 40 mg QHS [facility] Administration Budesonide 0.5 mg 01/10/21 08:00 01/11/21 08:38 Budesonide 0.5 Mg/2 Ml Nebu IH 0.5 mg Q12HRT [facility] Administration Carvedilol 25 mg 01/10/21 10:00 01/10/21 21:43 Carvedilol 25 Mg Tab PO 25 mg BID [facility] Administration Clonidine HCl 0.3 mg 01/10/21 04:00 01/10/21 05:32 Clonidine Tts 0.3 Mg/24 Hr Patch TD Not Given Th [facility] Docusate Sodium 100 mg 01/10/21 10:00 01/10/21 21:45 Docusate Sodium 100 Mg Cap PO 100 mg BID [facility] Administration Ergocalciferol 50,000 unit 01/11/21 10:00 Ergocalciferol (Vit D2) 50,000 Unit Cap PO Fr [facility] Famotidine 20 mg 01/10/21 10:00 01/10/21 12:21 Famotidine 20 Mg Tab PO 20 mg QAM [facility] Administration Heparin Sodium (Porcine) 5,000 unit 01/10/21 06:00 01/10/21 21:46 Heparin 5,000 Unit/1 Ml Vial SUB-Q 5,000 unit Q8HR [facility] Administration Hydromorphone HCl 0.5 mg 01/10/21 03:43 Hydromorphone 1 Mg/1 Ml Inj IV Q3H PRN Pain , Severe (7-10) Nitroglycerin/Dextrose 50 mg in 250 mls @ 3 mls/hr 01/10/21 02:00 01/10/21 02:01 Tridil Drip 50mg/250ml IV 10 mcg/min TITR [facility] 3 mls/hr Administration Protocol 10 MCG/MIN Sodium Chloride 100 mls @ 999 mls/hr 01/10/21 10:09 Nacl 0.9% IV CONNOR PRN Hypotension Miscellaneous Medication 200 mg 01/10/21 04:00 Dupilumab [Dupixent Pen] SQ Q2W [facility] Morphine Sulfate 2 mg 01/10/21 03:43 01/10/21 17:15 Morphine 2 Mg/1 Ml Inj IV 2 mg Q5MIN PRN Administration Chest Pain unrelieved by NTG Nifedipine 60 mg 01/10/21 08:00 01/10/21 12:20 Nifedipine Xl 60 Mg Tab PO 60 mg DAILY@0800 [facility] Administration Ondansetron HCl 4 mg 01/10/21 03:43 Ondansetron 4 Mg/2 Ml Inj IV Q8H PRN Nausea And Vomiting Oxycodone/Acetaminophen 1 tab 01/10/21 03:43 01/10/21 21:44 Oxycodone /Acetaminophen 5-325mg Tab PO 1 tab Q6H PRN Administration Pain, Moderate (4-6) Sevelamer Carbonate 3,200 mg 01/10/21 08:00 01/10/21 18:04 Sevelamer Carbonate 800 Mg Tab PO 3,200 mg TIDWM [facility] Administration Sodium Chloride 10 ml 01/10/21 10:00 01/10/21 10:05 Sodium Chloride 0.9% 10 Ml Flush Syringe IV 10 ml BID [facility] Administration Sodium Chloride 10 ml 01/10/21 03:43 Sodium Chloride 0.9% 10 Ml Flush Syringe IV PRN PRN LINE FLUSH Temazepam 15 mg 01/10/21 20:39 01/10/21 21:23 Temazepam 15 Mg Cap PO 15 mg QHS PRN Administration Sleep Tramadol HCl 50 mg 01/10/21 03:48 01/10/21 16:08 Tramadol 50 Mg Tab PO 50 mg Q6H PRN Administration Pain , Severe (7-10) Vitamin B Complex/Vitamin C 1 each 01/10/21 10:00 01/10/21 12:20 B Complex W/Vitamin C Tab PO 1 each DAILY [facility] Administration
[2021-01-11] MEDS: B COMPLEX W/VITAMIN C TAB PO SCH (10:56)
[2021-01-11] MEDS: carvediloL 25 MG TAB PO SCH (10:56)
[2021-01-11] MEDS: DOCUSATE SODIUM 100 MG CAP PO SCH (10:56)
[2021-01-11] MEDS: FAMOTIDINE 20 MG TAB PO SCH (10:57)
[2021-01-11] MEDS: HEPARIN 5,000 UNIT/1 ML VIAL SUB-Q SCH (10:58)
[2021-01-11] MEDS: NIFEdipine XL 60 MG TAB PO SCH (11:21)
--- NOTE | 2021-01-11 11:45 | Progress Note ---
Assessment and Plan 60 y/o with acute respiratory failure secondary to flash pulmonary edema, renal disease 01/11 BP control per primary, off bipap, will follow HD per renal Suggest stopping Nitro Starting oral therapy Wean Bipap therapy as tolerated Guarded prognosis. CCT 31min Subjective Date of service: 01/11/21 Interval history: REmains hypertensive. Based on documentation, patch has not been placed to help with blood pressure control Objective Vital Signs - 12hr 01/10/21 01/11/21 01/11/21 23:45 00:01 00:15 Pulse Rate Pulse Rate [ Anterior Bilateral Throughout] Respiratory Rate Respiratory Rate [Anterior Bilateral Throughout] Blood Pressure 147/85 156/89 151/89 Blood Pressure [Left] O2 Sat by Pulse 100 100 100 Oximetry 01/11/21 01/11/21 01/11/21 00:31 00:45 00:55 Pulse Rate Pulse Rate [ 89 Anterior Bilateral Throughout] Respiratory Rate Respiratory 20 Rate [Anterior Bilateral Throughout] Blood Pressure 177/99 167/92 Blood Pressure [Left] O2 Sat by Pulse 100 96 Oximetry 01/11/21 01/11/21 01/11/21 01:00 01:01 01:15 Pulse Rate 90 Pulse Rate [ Anterior Bilateral Throughout] Respiratory 19 Rate Respiratory Rate [Anterior Bilateral Throughout] Blood Pressure 167/92 177/99 157/90 Blood Pressure [Left] O2 Sat by Pulse 99 100 100 Oximetry 01/11/21 01/11/21 01/11/21 01:31 01:45 02:01 Pulse Rate Pulse Rate [ Anterior Bilateral Throughout] Respiratory Rate Respiratory Rate [Anterior Bilateral Throughout] Blood Pressure 151/85 145/87 145/84 Blood Pressure [Left] O2 Sat by Pulse 100 100 100 Oximetry 01/11/21 01/11/21 01/11/21 02:15 02:31 02:45 Pulse Rate Pulse Rate [ Anterior Bilateral Throughout] Respiratory Rate Respiratory Rate [Anterior Bilateral Throughout] Blood Pressure 144/84 144/90 157/91 Blood Pressure [Left] O2 Sat by Pulse 100 100 100 Oximetry 01/11/21 01/11/21 01/11/21 03:01 03:15 03:31 Pulse Rate Pulse Rate [ Anterior Bilateral Throughout] Respiratory Rate Respiratory Rate [Anterior Bilateral Throughout] Blood Pressure 158/90 159/94 154/88 Blood Pressure [Left] O2 Sat by Pulse 100 100 100 Oximetry 01/11/21 01/11/21 01/11/21 03:45 04:00 04:01 Pulse Rate 76 Pulse Rate [ Anterior Bilateral Throughout] Respiratory 18 Rate Respiratory Rate [Anterior Bilateral Throughout] Blood Pressure 150/91 166/86 154/88 Blood Pressure [Left] O2 Sat by Pulse 100 100 100 Oximetry 01/11/21 01/11/21 01/11/21 04:15 04:31 04:45 Pulse Rate Pulse Rate [ Anterior Bilateral Throughout] Respiratory Rate Respiratory Rate [Anterior Bilateral Throughout] Blood Pressure 159/88 150/91 160/89 Blood Pressure [Left] O2 Sat by Pulse 99 100 100 Oximetry 01/11/21 01/11/21 01/11/21 05:01 05:15 06:01 Pulse Rate Pulse Rate [ Anterior Bilateral Throughout] Respiratory Rate Respiratory Rate [Anterior Bilateral Throughout] Blood Pressure 154/92 165/96 168/97 Blood Pressure [Left] O2 Sat by Pulse 100 100 100 Oximetry 01/11/21 01/11/21 01/11/21 06:42 06:44 07:01 Pulse Rate Pulse Rate [ 77 Anterior Bilateral Throughout] Respiratory 20 Rate Respiratory 20 Rate [Anterior Bilateral Throughout] Blood Pressure 173/98 Blood Pressure [Left] O2 Sat by Pulse 100 Oximetry 01/11/21 01/11/21 01/11/21 08:01 08:05 08:06 Pulse Rate 62 Pulse Rate [ Anterior Bilateral Throughout] Respiratory 18 20 Rate Respiratory Rate [Anterior Bilateral Throughout] Blood Pressure 161/92 Blood Pressure 154/87 [Left] O2 Sat by Pulse 99 100 100 Oximetry 01/11/21 01/11/21 01/11/21 08:09 08:42 09:01 Pulse Rate 62 Pulse Rate [ 64 Anterior Bilateral Throughout] Respiratory Rate Respiratory 18 Rate [Anterior Bilateral Throughout] Blood Pressure 170/96 Blood Pressure [Left] O2 Sat by Pulse 99 Oximetry 01/11/21 01/11/21 01/11/21 10:01 10:56 11:01 Pulse Rate 68 Pulse Rate [ Anterior Bilateral Throughout] Respiratory Rate Respiratory Rate [Anterior Bilateral Throughout] Blood Pressure 168/98 185/110 185/110 Blood Pressure [Left] O2 Sat by Pulse 100 95 Oximetry CBC and BMP: 01/11/21 04:57 01/11/21 04:57 ABG, PT/INR, D-dimer: PT/INR, D-dimer PT 16.6 Sec. (12.2-14.9) H 10/07/21 00:26 INR 1.29 (0.87-1.13) H 01/10/21 00:26 Abnormal lab findings: Abnormal Labs 01/10/21 01/10/21 01/10/21 00:26 00:26 00:26 WBC 13.8 H RBC 3.26 L Hgb 9.6 L Hct 29.3 L RDW 24.8 H Seg Neutrophils % 78.6 H Seg Neuts % (Manual) Seg Neutrophils # 10.9 H Lymphocytes # (Manual) PT 16.6 H INR 1.29 H Sodium 136 L Chloride 92.0 L Carbon Dioxide 20 L BUN 47 H Creatinine 8.0 H Glucose 140 H Troponin T 0.625 H* Total Protein 8.6 H 01/10/21 01/11/21 01/11/21 15:10 04:57 04:57 WBC RBC 2.80 L Hgb 8.4 L Hct 24.7 L RDW 24.9 H Seg Neutrophils % Seg Neuts % (Manual) 76.0 H Seg Neutrophils # Lymphocytes # (Manual) 1.0 L PT INR Sodium 136 L Chloride 92.7 L Carbon Dioxide BUN 27 H Creatinine 4.8 H Glucose Troponin T 0.603 H* Total Protein
[2021-01-11] MEDS ORDERED: hydrALAZINE 100 MG TAB PO SCH (12:00)
--- NOTE | 2021-01-11 13:55 | Progress Note ---
Assessment and Plan Volume optimization per nephrology. Continue home antihypertensive regimen: Coreg 25mg BID, Nifedipine 30mg BID, Clonidine 0.3mg/24 hr patch q7days. Recent echo and nuclear stress test noted Patient seen in conjunction with Dr. Mcmahan who agrees with this plan of care. Will continue to follow - Patient Problems (1) Accelerated hypertension Current Visit: Yes Status: Acute (2) Acute respiratory failure Current Visit: Yes Status: Acute (3) Ascending aorta dilation Current Visit: Yes Status: Acute (4) ESRD on hemodialysis Current Visit: Yes Status: Acute (5) Elevated troponin Current Visit: Yes Status: Acute (6) Hypertension Current Visit: Yes Status: Acute (7) NSTEMI (non-ST elevated myocardial infarction) Current Visit: Yes Status: Acute Subjective Date of service: 01/11/21 Principal diagnosis: Volume overload, acclerated HTN, ESRD Interval history: Patient reports feeling much better. Patient noticed to be hypertensive and clonidine not given Objective Vital Signs Temp Pulse Pulse Resp Resp BP BP 01/11/21 11:01 185/110 01/11/21 10:56 68 185/110 01/11/21 10:01 168/98 01/11/21 09:01 170/96 01/11/21 08:42 64 18 01/11/21 08:09 62 01/11/21 08:06 20 01/11/21 08:05 62 18 154/87 01/11/21 08:01 161/92 01/11/21 07:01 173/98 01/11/21 06:44 77 20 01/11/21 06:42 20 01/11/21 06:01 168/97 01/11/21 05:15 165/96 01/11/21 05:01 154/92 01/11/21 04:45 160/89 01/11/21 04:31 150/91 01/11/21 04:15 159/88 01/11/21 04:01 154/88 01/11/21 04:00 76 18 166/86 01/11/21 03:45 150/91 01/11/21 03:31 154/88 01/11/21 03:15 159/94 01/11/21 03:01 158/90 01/11/21 02:45 157/91 01/11/21 02:31 144/90 01/11/21 02:15 144/84 01/11/21 02:01 145/84 01/11/21 01:45 145/87 01/11/21 01:31 151/85 01/11/21 01:15 157/90 01/11/21 01:01 177/99 01/11/21 01:00 90 19 167/92 01/11/21 00:55 89 20 01/11/21 00:45 167/92 01/11/21 00:31 177/99 01/11/21 00:15 151/89 01/11/21 00:01 156/89 01/10/21 23:45 147/85 01/10/21 23:31 148/84 01/10/21 23:15 155/87 01/10/21 23:01 147/85 01/10/21 22:58 97.2 F L 77 22 165/92 01/10/21 22:45 155/87 01/10/21 22:31 169/96 01/10/21 22:15 72 167/93 01/10/21 22:01 162/92 01/10/21 22:00 76 74 21 162/92 01/10/21 21:58 77 31 H 162/92 01/10/21 21:45 75 170/96 01/10/21 21:44 22 01/10/21 21:43 76 170/96 01/10/21 21:31 167/93 01/10/21 21:30 78 167/93 01/10/21 21:15 77 170/97 01/10/21 21:01 165/96 01/10/21 21:00 76 165/96 01/10/21 20:45 75 171/97 01/10/21 20:31 170/97 01/10/21 20:30 74 170/79 01/10/21 20:15 74 162/100 01/10/21 20:01 158/97 01/10/21 20:00 77 158/97 01/10/21 19:45 97.8 F 76 22 162/99 162/99 01/10/21 19:31 163/101 01/10/21 19:30 77 163/101 01/10/21 19:15 76 161/97 01/10/21 19:01 162/99 01/10/21 19:00 70 164/94 01/10/21 18:45 73 160/92 01/10/21 18:31 154/93 01/10/21 18:30 97.8 F 71 18 154/93 01/10/21 18:15 151/90 01/10/21 18:09 151/90 01/10/21 18:01 149/92 01/10/21 17:45 151/90 01/10/21 17:31 151/90 01/10/21 17:18 70 23 150/89 01/10/21 17:15 154/88 01/10/21 17:01 154/93 01/10/21 16:45 153/91 01/10/21 16:31 154/88 01/10/21 16:15 150/89 01/10/21 16:01 153/91 01/10/21 15:45 150/89 01/10/21 15:38 72 23 01/10/21 15:31 150/89 01/10/21 15:15 144/88 01/10/21 15:01 144/88 01/10/21 14:45 146/91 01/10/21 14:31 146/91 01/10/21 14:15 145/88 01/10/21 14:01 145/88 - Physical Examination General: No Apparent Distress HEENT: Positive: EOMI, Normocephaly Neck: Positive: neck supple, trachea midline Cardiac: Positive: Reg Rate and Rhythm Lungs: Positive: Normal Breath Sounds Neuro: Positive: Grossly Intact Abdomen: Positive: Soft. Negative: Tender Skin: Negative: Rash Musculoskeletal: No Pain, Normal Range of Motion Extremities: Present: upper extr. pulses, lower extr. pulses, edema (mild pedal) - Labs and Meds CBC 01/11/21 Range/Units 04:57 WBC 6.8 (4.5-11.0) K/mm3 RBC 2.80 L (3.65-5.03) M/mm3 Hgb 8.4 L (11.8-15.2) gm/dl Hct 24.7 L (35.5-45.6) % Plt Count 220 (140-440) K/mm3 Comprehensive Metabolic Panel 01/11/21 Range/Units 04:57 Sodium 136 L (137-145) mmol/L Potassium 3.6 (3.6-5.0) mmol/L Chloride 92.7 L (98-107) mmol/L Carbon Dioxide 25 (22-30) mmol/L BUN 27 H (9-20) mg/dL Creatinine 4.8 H (0.8-1.3) mg/dL Glucose 97 (75-100) mg/dL Calcium 9.4 (8.4-10.2) mg/dL - Imaging and Cardiology EKG: report reviewed (Echo 08/22/2020 Left ventricular ejection fraction is 60% Trace aortic valve insufficiency Mildly increased left ventricular wall thickness. Trace mitral valve regurgitation. Moderately dilated Sinuses of Valsalva and ascending aorta. Mildly dilated left atrium.), image reviewed Echo: report reviewed (Nuclear Stress Test 10/24/2020 No scintigraphic evidence of ischemia or infarction.) - Telemetry EKG Rhythm: Sinus Rhythm - EKG Sinus rhythms and dysrhythmias: sinus rhythm Ventricular dysrhythmias: ventricular premature com
--- NOTE | 2021-01-11 15:44 | Event Note ---
Date: 01/10/21 Patient seen and examined 60-year-old male with history of end-stage renal disease presented to the hospital due to acute respiratory failure from flash pulmonary edema Patient also initiated on NTG drip for hypertensive urgency Nephrology and cardiology following s/p hemodialysis today Initiated p.o. antihypertensive and wean off NTG drip as tolerated Follow clinically and continue current management and plan -It took me about 28 minutes to reevaluate and reasses this patient, discussed with RN/CM, review medical documents, lab results, imaging, medication list and placing order.
--- NOTE | 2021-01-11 15:49 | Discharge Summary ---
Providers - Providers Date of Admission: 01/10/21 03:43 Date of discharge: 01/11/21 Attending physician: KRISTAL HERNANDEZ 01/10/21 02:42 Consult to Physician [CONS] Routine Comment: Consulting Provider: OMARI PEREIRA Physician Instructions: Reason For Exam: critical care 01/10/21 03:43 Consult to Physician [CONS] Routine Comment: Consulting Provider: MANISH BROOKS Physician Instructions: Reason For Exam: esrd Consult to Physician [CONS] Routine Comment: Consulting Provider: SILVANA TEIXEIRA Physician Instructions: Reason For Exam: nstemi 01/10/21 09:41 Consult to Physician [CONS] Routine Comment: Consulting Provider: KIM BRAVO Physician Instructions: Reason For Exam: ESRD needing HD Primary care physician: HR RECEPTIONIST Hospitalization Condition: Good Hospital course: 60-year-old male with history of end-stage renal disease presented to the hospital due to acute respiratory failure from flash pulmonary edema Patient also initiated on NTG drip for hypertensive urgency Nephrology and cardiology following s/p hemodialysis today Initiated p.o. antihypertensive and wean off NTG drip as tolerated His BP was stabilized, cleared by nephrology and cardiology for discharge Patient was then discharged home with outpt f/u in stable condition Disposition: 01 HOME / SELF CARE / HOMELESS Final Discharge Diagnosis (Prints w/discharge instructions): --ESRD on dialysis. --Acute hypoxic respiratory failure/. --Flush Pulmonary edema. --Hypertensive emergency. --NSTEMI type II Time spent for discharge: 34 minutes Core Measure Documentation - Palliative Care Palliative Care/ Comfort Measures: Not Applicable - Core Measures Any of the following diagnoses?: none Exam - Physical Exam Narrative exam: GENERAL: well-developed and well-nourished AAM lying on bed appeared to be in no discomfort. HEENT: Normocephalic. Atraumatic. No conjunctival congestion or icterus. Patient has moist mucous membranes. NECK: Supple. Trachea midline. CHEST/LUNGS: Clear to auscultated bilaterally, breathing nonlabored. No wheezes crackles or rhonchi. HEART/CARDIOVASCULAR: Regular in rate and rhythm. S1 and S2 positive. ABDOMEN: Abdomen is soft, nontender. Patient has normal bowel sounds. SKIN: There is no rash. Warm and dry. NEURO: No focal motor deficit. Follows command. MUSCULOSKELETAL: No joint effusion or tenderness. EXTRIMITY: No edema, no cyanosis or clubbing. PSYCH: Cooperative. - Constitutional Vitals: Temp Pulse Resp BP Pulse Ox 97.2 F L 63 18 185/110 99 01/10/21 22:58 01/11/21 14:29 01/11/21 14:29 01/11/21 11:01 01/11/21 14:30 Plan Activity: advance as tolerated Weight Bearing Status: Weight Bear as Tolerated Diet: low fat, low salt, renal Special Instructions: restrict fluid intake to (1.2 L daily), record daily BP diary Additional Instructions: Continue outpatient hemodialysis as scheduled. Follow- up with ged tutor in 1 week Follow up with: PRIMARY CARE, [Primary Care Provider] - 3-5 Days Prescriptions: AtorvaSTATin [Lipitor] 40 mg PO QHS #30 tablet hydrALAZINE [Apresoline TAB] 100 mg PO TID #90 tab Aspirin EC [Halfprin EC] 81 mg PO QDAY #30 tablet.
[2021-01-11 16:37] VITALS: BP 146/86
== END 2021-01-11 17:30 | disposition home or self-care (01) | DRG 189 ==
LOC: ED 00:06 → CC1 03:43
PROVIDERS: ADMIT Hospitalist; ATTEND Internal Medicine
PROC: 5A09357 Assistance with Respiratory Ventilation, Less than 24 Consecutive Hours, Continuous Positive Airway Pressure (ICD-10-PCS; principal; 2021-01-10)
PROC: 5A1D70Z Performance of Urinary Filtration, Intermittent, Less than 6 Hours Per Day (ICD-10-PCS; 2021-01-11)
DX: J96.01 Acute respiratory failure with hypoxia (principal); I21.A1 Myocardial infarction type 2; N18.6 End stage renal disease; I16.1 Hypertensive emergency; I13.2 Hypertensive heart and chronic kidney disease with heart failure and with stage 5 chronic kidney disease, or end stage renal disease; J45.902 Unspecified asthma with status asthmaticus; N25.81 Secondary hyperparathyroidism of renal origin; J81.1 Chronic pulmonary edema; I50.9 Heart failure, unspecified; Z99.2 Dependence on renal dialysis; G43.909 Migraine, unspecified, not intractable, without status migrainosus; Z87.891 Personal history of nicotine dependence; Z90.49 Acquired absence of other specified parts of digestive tract; D64.9 Anemia, unspecified; I77.819 Aortic ectasia, unspecified site
CPT/HCPCS: 36415; 71045; 80048; 80053; 80061; 80074; 84484; 85007; 85025; 85610; 85730; 93005; 94640; 94644; 94660; 94760; G0378; J1644; J2270